=== PATIENT | female | born 1970 | race Caucasian/White ===

== ENCOUNTER 2017-06-25 20:54 | Inpatient (IN) | payer MEDICAID ==
--- NOTE | 2017-06-25 21:16 | ER Document Report ---
ED GI/ - General Chief Complaint: Urinary Problem Stated Complaint: URINARY SYMPTOMS Time Seen by Provider: 06/25/17 21:15 Mode of Arrival: Medic Information source: Patient Notes: 47 yo morbidly obese, coninue to smoke, depression,diabetic, SVT, COPD (oxygen dependent-4lpm and CPAP) , hx sepsis, renal failure, living in recliner since September-(can't breathe supine), immobility - using bedside commode, with recent high blood [id number] (40 this morning), here tonight because her parents told her to come with 3 day symptoms of body "jerking", head tilting to the left in spasms, increased weakness, roaring in ears-head, sleepy, no urge to urinate for 3 days-but did get on way here, PCP: Lucretia [employer] managing her care. Has been decreasing her methadone and oxycodone recently. She also states she has been falling asleep with lit cigarettes which are causing dunaway to her chest. So has crusted sores and history of abscesses. TRAVEL OUTSIDE OF THE [place] IN LAST 30 DAYS: No - Related Data Allergies/Adverse Reactions: ceftriaxone sodium [From Rocephin] Allergy (Unknown, Verified 06/26/17 02:16) Generalized Itching levofloxacin [From Levaquin] Allergy (Unknown, Verified 06/26/17 02:16) Generalized Itching adhesive tape [Adhesive Tape] Allergy (Verified 06/26/17 02:16) latex [Latex] Allergy (Verified 06/26/17 02:16) morphine [Morphine] Allergy (Verified 06/26/17 02:16) Eczematous dermatitis vancomycin [Vancomycin] Adverse Reaction (Severe, Verified 06/26/17 02:16) Renal failure bacitracin [From Neosporin] Adverse Reaction (Unknown, Verified 06/26/17 02:16) Generalized rash gramicidin D [From Neosporin] Adverse Reaction (Unknown, Verified 06/26/17 02:16 ) Generalized rash neomycin sulfate [From Neosporin] Adverse Reaction (Unknown, Verified 06/26/17 02:16) Generalized rash polymyxin B [From Neosporin] Adverse Reaction (Unknown, Verified 06/26/17 02:16) Generalized rash Home Medications: Current Home Medications Gabapentin [Neurontin 300 mg Capsule] 300 mg PO Q8 06/26/17 [History] Glimepiride [Amaryl 4 mg Tablet] 4 mg PO BID 06/26/17 [History] Insulin Glargine,Hum.rec.anlog [Nasra Bradley] 150 unit SQ DAILY 06/26/17 [ History] Lisinopril [Prinivil 2.5 mg Tablet] 2.5 mg PO DAILY 06/26/17 [History] Methadone HCl [Dolophine 10 mg Tablet] 20 mg PO Q12 06/26/17 [History] Metoprolol Tartrate [Lopressor 50 mg Tablet] 50 mg PO Q12 06/26/17 [History] Oxycodone HCl [Oxy-Ir 5 mg Tablet] 5 mg PO Q8 06/26/17 [History] Venlafaxine HCl [Effexor 75 mg Tablet] 225 mg PO DAILY 06/26/17 [History] Past Medical History - General Information source: Patient, Parent - Social History Smoking Status: Current Every Day Smoker Frequency of alcohol use: None Drug Abuse: None Lives with: Spouse/Significant other Family History: Reviewed & Not Pertinent - No one with DVT. No one with pulmonary emboli. - Medical History Notes: morbid obesity - Past Medical History Cardiac Medical History: Reports: Hx Hypercholesterolemia, Hx Hypertension Pulmonary Medical History: Reports: Hx COPD - On home oxygen at 4 L Denies: Hx Tuberculosis Endocrine Medical History: Reports: Hx Diabetes Mellitus Type 2 - On Lantus, Humalog, Amaryl Renal/ Medical History: Reports: Hx Hemodialysis - History of; no longer, Hx Renal Insufficiency - 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 Suspected vancomycin allergy Skin Medical History: Reports Hx Cellulitis Psychiatric Medical History: Reports: Hx Depression Past Surgical History: Reports: Hx Abdominal Surgery - Abdominal wall abscess, incision and drainage., Hx Orthopedic Surgery - right knee, right arm - Immunizations Immunizations up to date: Yes Hx Diphtheria, Pertussis, Tetanus Vaccination: Yes Hx Pneumococcal Vaccination: 10/11/13 Review of Systems - Review of Systems Constitutional: See HPI EENT: No symptoms reported Cardiovascular: No symptoms reported Respiratory: See HPI Gastrointestinal: No symptoms reported Genitourinary: No symptoms reported Female Genitourinary: No symptoms reported Musculoskeletal: No symptoms reported Skin: See HPI Hematologic/Lymphatic: No symptoms reported Neurological/Psychological: See HPI Physical Exam - Vital signs Vitals: Temp Pulse Ox 99.0 F 90 L 06/25/17 21:12 06/25/17 21:12 Interpretation: Tachycardic, Hypoxic, Tachypneic - General Notes: drowsy - HEENT Head: Normocephalic, Atraumatic Eyes: Normal Conjunctiva: Normal Pupils: PERRL Tympanic membrane: Normal Mucous membranes: Dry Pharynx: Erythema Neck: Supple - Respiratory Respiratory status: No respiratory distress Chest status: Nontender Breath sounds: Normal. No: Wheezing Chest palpation: Normal - Cardiovascular Rhythm: Regular Heart sounds: Normal auscultation Murmur: No - Abdominal Inspection: Morbidly Obese Distension: No distension Bowel sounds: Normal Tenderness: Nontender Organomegaly: No organomegaly - difficult to assess due to adipose - Back Back: Normal, Nontender - Extremities General upper extremity: Normal inspection, Nontender, Normal color, Normal ROM , Normal temperature General lower extremity: Normal inspection, Nontender, Edema, Normal color, Normal ROM, Normal temperature, Other - unable to walk due to weakness. No: Kelly's sign - Neurological Neuro grossly intact: Yes Cognition: Normal Orientation: AAOx4 [place] Coma Scale Eye Opening: Spontaneous [place] Coma Scale Verbal: Oriented [place] Coma Scale Motor: Obeys Commands [place] Coma Scale Total: 15 Speech: Normal Motor strength normal: LUE, RUE, LLE, RLE Sensory: Normal - Psychological Associated symptoms: Normal affect, Normal mood - Skin Skin Temperature: Warm Skin Moisture: Dry Skin Color: Normal Notes: round crusted chest lesions, also lower abdomen Course - Re-evaluation Re-evalutation: 06/26/17 00:[address] Mon, the patient will be admitted to [facility] for acute renal failure and exacerbation of COPD. Dr. santoro will call me back. - Vital Signs Vital signs: Temp Pulse Resp BP Pulse Ox 98.2 F 92 18 102/57 L 89 L 06/27/17 11:13 06/27/17 13:47 06/27/17 13:47 06/27/17 11:13 06/27/17 13:47 - Laboratory Result Diagrams: 06/27/17 03:58 06/27/17 03:58 Laboratory results interpreted by me: 06/25/17 06/25/17 06/25/17 22:20 22:20 22:20 RBC 5.63 H MCH 26.0 L MCHC 31.2 L RDW 20.6 H Carbonic Acid ABG pH ABG pCO2 ABG pO2 ABG HCO3 ABG Total CO2 ABG O2 Saturation Potassium 5.6 H BUN 41 H Creatinine 2.67 H Est GFR ( Amer) 23 L Est GFR (Non-Af Amer) 19 L Glucose 131 H Direct Bilirubin 0.9 H Alkaline Phosphatase 134 H NT-Pro-B Natriuret Pep 1690 H Albumin 3.1 L Urine Protein Urine Blood Ur Leukocyte Esterase 06/25/17 06/25/17 22:20 23:20 RBC MCH MCHC RDW Carbonic Acid 2.02 H ABG pH 7.26 L ABG pCO2 67.2 H ABG pO2 61.8 L ABG HCO3 29.5 H ABG Total CO2 31.5 H ABG O2 Saturation 87.4 L Potassium BUN Creatinine Est GFR ( Amer) Est GFR (Non-Af Amer) Glucose Direct Bilirubin Alkaline Phosphatase NT-Pro-B Natriuret Pep Albumin Urine Protein 100 H Urine Blood MODERATE H Ur Leukocyte Esterase TRACE H Discharge - Discharge Clinical Impression: Exacerbation of COPD, Respiratory failure, Acute renal failure, Morbid obesity , urinary tract infection Condition: Stable Disposition: ADMITTED INPATIENT Admitting Provider: Hospitalist Unit Admitted: [facility]
--- NOTE | 2017-06-25 22:36 | RADIOLOGY REPORT (SQ) ---
EXAM DESCRIPTION: CHEST SINGLE VIEW COMPLETED DATE/TIME: 06/25/2017 10:27 pm REASON FOR STUDY: shortness of breath COMPARISON: 11/12/2015. NUMBER OF VIEWS: One view. TECHNIQUE: Single frontal radiographic view of the chest acquired. LIMITATIONS: None. FINDINGS: LUNGS AND PLEURA: No opacities, masses or pneumothorax. No pleural effusion. MEDIASTINUM AND HILAR STRUCTURES: No masses or contour abnormality. HEART AND VASCULATURE: Cardiac enlargement. Vascular congestion. BONES: No acute findings. HARDWARE: None in the chest. OTHER: No other significant finding. IMPRESSION: CARDIAC ENLARGEMENT. VASCULAR CONGESTION. TECHNICAL DOCUMENTATION: JOB ID: [id number] [employer]- All Rights Reserved
[2017-06-25 22:44] LABS: ABSOLUTE EOSINOPHILS # (AUTO) 0.2 10^3/uL (0.0-0.6); ABSOLUTE LYMPHOCYTES (AUTO) 1.7 10^3/uL (0.5-4.7); ABSOLUTE MONOCYTES (AUTO) 0.8 10^3/uL (0.1-1.4); ABSOLUTE NEUT (AUTO) 7.2 10^3/uL (1.7-8.2); BASOPHILS % (AUTO) 0.4 % (0-2); EOSINOPHILS % (AUTO) 2.3 % (0-6); HEMATOCRIT 46.8 % (36.0-47.0); HEMOGLOBIN 14.6 g/dL (12.0-15.5); LYMPHOCYTES % (AUTO) 17.5 % (13-45); MEAN CORPUSCULAR HGB CONC 31.2 g/dL (32.0-36.0); MEAN CORPUSCULAR VOLUME 83 fl (80-97); MONOCYTES % (AUTO) 7.7 % (3-13); RED BLOOD COUNT 5.63 10^6/uL (3.72-5.28); RED CELL DISTRIBUTION WIDTH 20.6 % (11.5-14.0); SEGMENTED NEUTROPHILS % (AUTO) 72.1 % (42-78); WHITE BLOOD COUNT 9.9 10^3/uL (4.0-10.5)
[2017-06-25 23:10] LABS: ALANINE AMINOTRANSFERASE 15 U/L (9-52); ALBUMIN 3.1 g/dL (3.5-5.0); ALKALINE PHOSPHATASE 134 U/L (38-126); ANION GAP 11 (5-19); ASPARTATE AMINO TRANSFERASE 22 U/L (14-36); BILIRUBIN,DIRECT 0.9 mg/dL (0.0-0.4); BLOOD UREA NITROGEN 41 mg/dL (7-20); CALCIUM 8.5 mg/dL (8.4-10.2); CARBON DIOXIDE 28 mmol/L (22-30); CHLORIDE 100 mmol/L (98-107); CREATININE RESULT 2.67 mg/dL (0.52-1.25); GLUCOSE 131 mg/dL (75-110); MAGNESIUM 2.2 mg/dL (1.6-2.3); POTASSIUM 5.6 mmol/L (3.6-5.0); SODIUM 139.4 mmol/L (137-145); TOTAL PROTEIN 7.6 g/dL (6.3-8.2)
[2017-06-25 23:11] LABS: ALCOHOL < 10 mg/dL (NONE DETECTED)
[2017-06-25 23:36] LABS: ARTERIAL BLOOD BASE EXCESS 0.3 mmol/L; ARTERIAL BLOOD O2 SATURATION 87.4 % (94-98)
[2017-06-25 23:54] LABS: APPEARANCE,URINE CLOUDY; BILIRUBIN,URINE NEGATIVE (NEGATIVE); GLUCOSE, URINE NEGATIVE (NEGATIVE); KETONES,URINE NEGATIVE (NEGATIVE); LEUKOCYTE ESTERASE,URINE TRACE (NEGATIVE); NITRITE,URINE NEGATIVE (NEGATIVE); PROTEIN,URINE 100 mg/dL (NEGATIVE); URINE SPECIFIC GRAVITY 1.011; UROBILINOGEN,URINE NEGATIVE mg/dL (<2.0)
[2017-06-26 00:02] LABS: URINE BARBITURATES SCREEN NEGATIVE; URINE METHADONE SCREEN UNCONFIRMED POSITIVE; URINE OPIATES LOW NEGATIVE; URINE PHENCYCLIDINE SCREEN NEGATIVE
[2017-06-26] MEDS ORDERED: NA PHOS,M-B/NA PHOS,DI-BA (ADULT) 133 ML ENEMA PR ONE (00:29)
[2017-06-26] MEDS ORDERED: NALOXONE HCL INJ/PF 0.4 MG/1 ML SDV IV ONE (00:29)
[2017-06-26] MEDS ORDERED: LACTULOSE SYRUP 20 GM/30 ML UDCUP PO ONE (00:29)
[2017-06-26] MEDS ORDERED: SODIUM POLYSTYRENE SULFONATE 15 GM/60 ML PO ONE ×2 (00:29→09:01)
[2017-06-26] MEDS ORDERED: DEXTROSE 50%-WATER 25 GM/50 ML DISP.SYRIN IV PRN ×2 (00:31)
[2017-06-26] MEDS ORDERED: GLUCAGON,HUMAN RECOMB 1 MG INJ IM PRN (00:31)
[2017-06-26] MEDS ORDERED: DEXTROSE 40% GEL 15 GM TUBE PO PRN ×2 (00:31)
[2017-06-26] MEDS ORDERED: MAGNESIUM HYDROXIDE SUSP 30 ML UDCUP PO PRN (00:31)
[2017-06-26] MEDS ORDERED: ONDANSETRON HCL INJ/PF 4 MG/2 ML SDV IV PRN (00:31)
[2017-06-26] MEDS: IPRATROPIUM/ALBUTEROL 0.5-2.5 MG/3 ML AMPUL NEB SCH ×4 (01:44→19:57)
[2017-06-26 01:52] LABS: CREATINE KINASE MB 0.82 ng/mL (<4.55)
[2017-06-26 01:54] LABS: TROPONIN I < 0.012 ng/mL
[2017-06-26] MEDS ORDERED: NORMAL SALINE 1000 ML 1,000 ML IV ONE (02:31)
[2017-06-26] MEDS: HEPARIN SOD (PORCINE) 5,000 UNIT/ML 1 ML SYRINGE SUBCUT SCH ×3 (05:13→22:01)
[2017-06-26] MEDS: ACETAMINOPHEN 325 MG TABLET PO PRN (05:17)
[2017-06-26 06:31] LABS: ARTERIAL BLOOD BASE EXCESS 1.4 mmol/L; ARTERIAL BLOOD O2 SATURATION 80.9 % (94-98)
--- NOTE | 2017-06-26 06:47 | PDOC H&P ---
History of Present Illness Admission Date/PCP: 06/26/17 00:36 Patient complains of: Shortness of breath History of Present Illness: JANUARY THERESA is a 47 year old female with a past medical history of chronic pain, depression, anxiety, obstructive sleep apnea, COPD, and some dependent diabetes, diabetic neuropathy, restless leg syndrome, chronic constipation, tobacco dependence and super morbid obesity with a BMI of 84. Patient been in her usual state of health until approximately 48 hours ago her noted exceptional lethargy and shortness of breath consistent with previous episodes of hypercapnic respiratory failure. Patient's is at bedside and states the patient had refilled her methadone earlier in the week resulting in patients abrupt angry denial. In the emergency room she is found to be lethargic, hypoxemic and hypotensive, her labs reveal acute renal failure, hyperkalemia, hypoxia and hypercapnia. She started on BiPAP and referred to the hospitalist for admission. Past Medical History Cardiac Medical History: Reports: Hyperlipidema, Hypertension Pulmonary Medical History: Reports: Chronic Obstructive Pulmonary Disease (COPD ) - On home oxygen at 4 L, Sleep Apnea Denies: Tuberculosis Endocrine Medical History: Reports: Diabetes Mellitus Type 1, Diabetes Mellitus Type 2 - On Lantus, Humalog, Amaryl Psychiatric Medical History: Reports: Depression, Tobacco Dependency Past Surgical History Past Surgical History: Reports: Orthopedic Surgery - right knee, right arm Social History Information Source: Patient, Relative, Emergency Med Personnel, [facility] Records Smoking Status: Current Every Day Smoker Cigarettes Packs Per Day: 1 Number of Years Smokin Last Time Smoked: 06/25/17 Frequency of Alcohol Use: None Hx Recreational Drug Use: No Drugs: None Hx Prescription Drug Abuse: No - Advance Directive Resuscitation Status: Full Code Family History Family History: Reviewed & Not Pertinent - No one with DVT. No one with pulmonary emboli. Parental Family History Reviewed: Yes Children Family History Reviewed: Yes Sibling(s) Family History Reviewed.: Yes Medication/Allergy Home Medications: Gabapentin [Neurontin 300 mg Capsule] 300 mg PO TID 01/04/14 Glimepiride [Amaryl] 4 mg PO DAILY 11/12/15 Furosemide [Lasix 20 mg Tablet] 20 mg PO DAILY #30 tablet 11/18/15 Methadone HCl [Dolophine 10 mg Tablet] 20 mg PO Q12 tablet 11/18/15 Alprazolam [Xanax 0.5 mg Tablet] 0.5 mg PO DAILY 06/26/17 Insulin Glargine,Hum.rec.anlog [Nasra Bradley] 150 units SUBCUT TID 06/26/17 Lisinopril [Prinivil 2.5 mg Tablet] 2.5 mg PO DAILY 06/26/17 Metoprolol Tartrate [Lopressor 50 mg Tablet] 50 mg PO DAILY 06/26/17 Oxycodone HCl [Oxy-Ir 5 mg Tablet] 5 mg PO TID 06/26/17 Venlafaxine HCl ER [Effexor Xr 75 mg Cap.sr] 75 mg PO DAILY 06/26/17 Allergies/Adverse Reactions: ceftriaxone sodium [From Rocephin] Allergy (Unknown, Verified 06/26/17 02:16) Generalized Itching levofloxacin [From Levaquin] Allergy (Unknown, Verified 06/26/17 02:16) Generalized Itching adhesive tape [Adhesive Tape] Allergy (Verified 06/26/17 02:16) latex [Latex] Allergy (Verified 06/26/17 02:16) morphine [Morphine] Allergy (Verified 06/26/17 02:16) Eczematous dermatitis vancomycin [Vancomycin] Adverse Reaction (Severe, Verified 06/26/17 02:16) Renal failure bacitracin [From Neosporin] Adverse Reaction (Unknown, Verified 06/26/17 02:16) Generalized rash gramicidin D [From Neosporin] Adverse Reaction (Unknown, Verified 06/26/17 02:16 ) Generalized rash neomycin sulfate [From Neosporin] Adverse Reaction (Unknown, Verified 06/26/17 02:16) Generalized rash polymyxin B [From Neosporin] Adverse Reaction (Unknown, Verified 06/26/17 02:16) Generalized rash Review of Systems Constitutional: PRESENT: fatigue, weight gain. ABSENT: chills, fever(s), headache(s), weight loss Eyes: ABSENT: visual disturbances Ears: ABSENT: hearing changes Cardiovascular: ABSENT: chest pain, dyspnea on exertion, edema, orthropnea, palpitations Respiratory: PRESENT: dyspnea. ABSENT: cough, hemoptysis, sputum Gastrointestinal: PRESENT: bloating, constipation. ABSENT: coffee ground emesis , diarrhea, dysphagia Genitourinary: ABSENT: dysuria, hematuria Musculoskeletal: ABSENT: joint swelling Integumentary: ABSENT: rash, wounds Neurological: PRESENT: confusion, weakness. ABSENT: abnormal gait, abnormal speech, dizziness, focal weakness, syncope Psychiatric: PRESENT: anxiety Endocrine: ABSENT: cold intolerance, heat intolerance, polydipsia, polyuria Hematologic/Lymphatic: ABSENT: easy bleeding, easy bruising Physical Exam Vital Signs: Temp Pulse Resp BP Pulse Ox 97.9 F 99 30 H 103/54 L 84 L 06/26/17 03:46 06/26/17 03:46 06/26/17 04:12 06/26/17 03:46 06/26/17 03:46 Intake & Output 06/24/17 06/25/17 06/26/17 11:59 11:59 11:59 Intake Total 587 Output Total 1400 Balance -813 Weight 250.1 kg General appearance: PRESENT: disheveled, morbidly obese Head exam: PRESENT: atraumatic, normocephalic Eye exam: PRESENT: conjunctiva pink, EOMI, PERRLA. ABSENT: scleral icterus Ear exam: PRESENT: normal external ear exam Mouth exam: PRESENT: moist, tongue midline Neck exam: ABSENT: carotid bruit, JVD, lymphadenopathy, thyromegaly Respiratory exam: PRESENT: crackles, decreased breath sounds, prolonged expiratory phas, retraction, symmetrical, tachypnea. ABSENT: chest wall tenderness, rhonchi, stridor Cardiovascular exam: PRESENT: RRR. ABSENT: diastolic murmur, rubs, systolic murmur Pulses: PRESENT: normal dorsalis pedis pul Vascular exam: PRESENT: normal capillary refill GI/Abdominal exam: PRESENT: distended, hypoactive bowel sounds, soft, other - Widespread edema. ABSENT: tenderness Rectal exam: PRESENT: deferred Extremities exam: PRESENT: +1 edema Musculoskeletal exam: ABSENT: full ROM Neurological exam: PRESENT: altered, awake, oriented to person, oriented to place, CN II-XII grossly intact Psychiatric exam: PRESENT: anxious Skin exam: PRESENT: dry, intact, warm. ABSENT: cyanosis, rash Results Laboratory Results: 06/26/17 06/26/17 01:04 01:04 Creatine Kinase 31 CK-MB (CK-2) 0.82 Troponin I < 0.012 Impressions: Chest X-Ray 06/25/17 21:32 IMPRESSION: CARDIAC ENLARGEMENT. VASCULAR CONGESTION. Assessment & Plan - Diagnosis (1) Acute and chronic respiratory failure ([id number]) Is this a current diagnosis for this admission?: Yes Plan: Hypoxic and hypercapnic respiratory failure secondary to underlying obstructive sleep apnea, morbid obesity hypoventilation syndrome and opiate abuse. BiPAP support, opiate weaning with as needed Narcan, incentive spirometry. (2) Acute renal failure Is this a current diagnosis for this admission?: Yes Plan: Secondary to opiate misuse resulting in hypotension, IV fluid resuscitation, opiate weaning as needed Narcan, avoiding nephrotoxic meds and doses, follow-up chemistry (3) Hypotension Is this a current diagnosis for this admission?: Yes Plan: Secondary to opiate misuse, IV fluid challenge as needed Narcan (4) Diabetes Is this a current diagnosis for this admission?: Yes Plan: Hold metformin, 75% of long-acting insulin dose with sliding scale coverage (5) Chronic pain Is this a current diagnosis for this admission?: Yes Plan: Opiate weaning given reduction respiratory drive. - Time Time Spent: 50 to 70 Minutes - Inpatient Certification Medical Necessity: Need Close Monitoring Due to Risk of Patient Decompensation
[2017-06-26] MEDS ORDERED: INSULIN GLARGINE,HUM.REC.ANLOG 1,000 UNIT/10 ML UNIT SUBCUT SCH (08:00)
[2017-06-26] MEDS ORDERED: OXYCODONE HCL IR 5 MG TABLET PO PRN (08:09)
[2017-06-26] MEDS: GABAPENTIN 300 MG CAPSULE PO SCH ×3 (08:12→22:07)
[2017-06-26 09:09] LABS: CREATINE KINASE MB 3.32 ng/mL (<4.55)
[2017-06-26 09:13] LABS: TROPONIN I < 0.012 ng/mL
[2017-06-26] MEDS: METHADONE HCL 10 MG TABLET PO SCH ×2 (09:18→22:07)
[2017-06-26] MEDS: GLIMEPIRIDE 4 MG TABLET PO SCH (09:19)
[2017-06-26] MEDS: VENLAFAXINE HCL 75 MG CAP.SR.24H PO SCH (09:19)
[2017-06-26] MEDS: DOCUSATE SODIUM 100 MG CAPSULE PO SCH ×2 (09:19→18:25)
[2017-06-26] MEDS: FLUCONAZOLE 100 MG TABLET PO SCH (09:20)
[2017-06-26] MEDS ORDERED: (PENDING PHARMACY ID) (Glimepiride [Amaryl] 4 MG) PO SCH (10:00)
[2017-06-26] MEDS ORDERED: INSULIN GLARGINE HUM REC ANLOG 150 UNIT SUBCUT SCH (10:00)
[2017-06-26] MEDS ORDERED: METOPROLOL TARTRATE 50 MG TABLET PO SCH ×3 (10:00)
[2017-06-26] MEDS ORDERED: ALPRAZOLAM 0.5 MG TABLET PO SCH (10:00)
--- NOTE | 2017-06-26 11:48 | EKG REPORT ---
SEVERITY:- ABNORMAL ECG - SINUS RHYTHM PROBABLE LEFT ATRIAL ABNORMALITY PROBABLE RIGHT VENTRICULAR HYPERTROPHY BORDERLINE T ABNORMALITIES, INFERIOR LEADS : Confirmed by: Mariam Banegas 26-Jun-2017 11:47:36
[2017-06-26] MEDS ORDERED: METOPROLOL TARTRATE 25 MG TABLET PO ONE (12:30)
[2017-06-26 13:11] LABS: ANION GAP 11 (5-19); BLOOD UREA NITROGEN 38 mg/dL (7-20); CALCIUM 8.4 mg/dL (8.4-10.2); CARBON DIOXIDE 28 mmol/L (22-30); CHLORIDE 103 mmol/L (98-107); GLUCOSE 101 mg/dL (75-110); SODIUM 141.8 mmol/L (137-145)
--- NOTE | 2017-06-26 13:11 | PDOC PROGRESS REPORT ---
Subjective Progress Note for:: 06/26/17 Subjective:: Patient's patient seen on morning rounds. She has just come off BiPAP therapy to eat. She appears tachypneic at rest. She is also still lethargic. She is no longer tachycardic or hypotensive. Denies chest pain, palpitations or dyspnea. She denies productive cough. She denies fever or chills. She denies nausea, vomiting or abdominal pain. She complains of chronic back pain. She admits to being noncompliant with CPAP therapy at home. Her is at bedside. She also continues to smoke. She was counseled. She has no desire to quit smoking. Physical Exam Vital Signs: Temp Pulse Resp BP Pulse Ox 98.4 F 97 22 H 121/91 H 97 06/26/17 07:28 06/26/17 08:36 06/26/17 08:38 06/26/17 07:28 06/26/17 08:36 Intake & Output 06/25/17 06/26/17 06/27/17 06:59 06:59 06:59 Intake Total 587 Output Total 1400 Balance -813 Weight 250.1 kg General appearance: PRESENT: mild distress, morbidly obese, well-developed, well -nourished Head exam: PRESENT: atraumatic, normocephalic Eye exam: PRESENT: conjunctiva pink, EOMI, PERRLA. ABSENT: scleral icterus Ear exam: PRESENT: normal external ear exam Mouth exam: PRESENT: moist, tongue midline Neck exam: ABSENT: carotid bruit, JVD, lymphadenopathy, thyromegaly Respiratory exam: PRESENT: clear to auscultation ayah. ABSENT: rales, rhonchi, wheezes Cardiovascular exam: PRESENT: RRR. ABSENT: diastolic murmur, rubs, systolic murmur Pulses: PRESENT: normal dorsalis pedis pul Vascular exam: PRESENT: normal capillary refill GI/Abdominal exam: PRESENT: normal bowel sounds, soft. ABSENT: distended, guarding, mass, organolmegaly, rebound, tenderness Rectal exam: PRESENT: deferred Extremities exam: PRESENT: full ROM. ABSENT: calf tenderness, clubbing, pedal edema Musculoskeletal exam: PRESENT: ambulatory, full ROM, tenderness Neurological exam: PRESENT: alert, awake, oriented to person, oriented to place , oriented to time, oriented to situation, CN II-XII grossly intact. ABSENT: motor sensory deficit Psychiatric exam: PRESENT: appropriate affect, normal mood. ABSENT: homicidal ideation, suicidal ideation Skin exam: PRESENT: dry, intact, warm. ABSENT: cyanosis, rash Results Laboratory Results: 06/26/17 06:00 Carbonic Acid 1.97 H HCO3/H2CO3 Ratio 15:1 ABG pH 7.28 L ABG pCO2 65.6 H ABG pO2 51.4 L ABG HCO3 30.1 H ABG O2 Saturation 80.9 L ABG Base Excess 1.4 FiO2 4.5 LITERS 06/26/17 06/26/17 06/26/17 01:04 01:04 08:30 Creatine Kinase 31 70 CK-MB (CK-2) 0.82 Troponin I < 0.012 06/26/17 08:30 Creatine Kinase CK-MB (CK-2) 3.32 Troponin I < 0.012 Impressions: Chest X-Ray 06/25/17 21:32 IMPRESSION: CARDIAC ENLARGEMENT. VASCULAR CONGESTION. Assessment & Plan - Diagnosis (1) Acute and chronic respiratory failure with hypercapnia Is this a current diagnosis for this admission?: Yes Plan: Patient requiring BiPAP majority of the time. She was counseled that she needs to keep it on as much as possible except when eating. Ms. to be noncompliant with CPAP at home. She continues to smoke as well. We discussed that the effects of narcotics on her COPD as well. (2) SIRS (systemic inflammatory response syndrome) Is this a current diagnosis for this admission?: Yes (3) Acute renal failure Is this a current diagnosis for this admission?: Yes Plan: Likely secondary to prerenal dehydration. Will continue to hydrate, avoid nephrotoxic medications and dosages. Patient had a normal creatinine during last hospitalization (4) Hyperkalemia Is this a current diagnosis for this admission?: Yes Plan: Kayexalate and monitor (5) Hypotension Is this a current diagnosis for this admission?: Yes Plan: Likely secondary to dehydration and narcotics. Improved with hydration and Narcan (6) Obstructive chronic bronchitis with exacerbation Is this a current diagnosis for this admission?: Yes Plan: Patient admits to not wearing CPAP at home. She also continues to smoke. (7) Morbid obesity with BMI of 70 and over, adult Is this a current diagnosis for this admission?: Yes (8) CARY (obstructive sleep apnea) Is this a current diagnosis for this admission?: Yes Plan: Counseled on the need for CPAP. is aware (9) Chronic pain Is this a current diagnosis for this admission?: Yes Plan: Will continue methadone. She admits at times to not taking opioid breakthrough medication as ordered - Time Time Spent with patient: 25-34 minutes Critical Time spent with patient: 15-24 minutes Medications reviewed and adjusted accordingly: Yes Anticipated discharge: Home with Homehealth
[2017-06-26 15:21] LABS: CREATINE KINASE MB 2.78 ng/mL (<4.55)
[2017-06-26 15:24] LABS: TROPONIN I < 0.012 ng/mL
[2017-06-26] MEDS: METOPROLOL TARTRATE 25 MG TABLET PO SCH (22:07)
[2017-06-27 00:25] LABS: ARTERIAL BLOOD BASE EXCESS 0.7 mmol/L; ARTERIAL BLOOD O2 SATURATION 93.3 % (94-98)
[2017-06-27] MEDS ORDERED: NALOXONE HCL INJ/PF 0.4 MG/1 ML SDV IV ONE (01:24)
[2017-06-27] MEDS ORDERED: NALOXONE HCL INJ/PF 0.4 MG/1 ML SDV ONE (01:29)
[2017-06-27] MEDS: IPRATROPIUM/ALBUTEROL 0.5-2.5 MG/3 ML AMPUL NEB SCH ×4 (02:06→19:46)
[2017-06-27 04:06] LABS: VENOUS BLOOD BASE EXCESS 1.4 mmol/L; VENOUS BLOOD HCO3 29.8 mmol/L (20-32); VENOUS BLOOD PCO2 64.2 mmHg (35-63); VENOUS BLOOD PH 7.28 (7.30-7.42)
[2017-06-27 04:10] LABS: ABSOLUTE BASOPHILS # (AUTO) 0.1 10^3/uL (0.0-0.2); ABSOLUTE EOSINOPHILS # (AUTO) 0.1 10^3/uL (0.0-0.6); ABSOLUTE LYMPHOCYTES (AUTO) 1.2 10^3/uL (0.5-4.7); ABSOLUTE MONOCYTES (AUTO) 0.6 10^3/uL (0.1-1.4); ABSOLUTE NEUT (AUTO) 6.2 10^3/uL (1.7-8.2); BASOPHILS % (AUTO) 0.9 % (0-2); EOSINOPHILS % (AUTO) 1.4 % (0-6); HEMATOCRIT 41.8 % (36.0-47.0); HEMOGLOBIN 13.4 g/dL (12.0-15.5); HGB HCT DIFFERENCE -1.6; LYMPHOCYTES % (AUTO) 14.8 % (13-45); MEAN CORPUSCULAR HEMOGLOBIN 26.1 pg (27.0-33.4); MEAN CORPUSCULAR HGB CONC 31.9 g/dL (32.0-36.0); MEAN CORPUSCULAR VOLUME 82 fl (80-97); MONOCYTES % (AUTO) 7.3 % (3-13); RED BLOOD COUNT 5.13 10^6/uL (3.72-5.28); RED CELL DISTRIBUTION WIDTH 20.6 % (11.5-14.0); SEGMENTED NEUTROPHILS % (AUTO) 75.6 % (42-78); WHITE BLOOD COUNT 8.2 10^3/uL (4.0-10.5)
[2017-06-27 04:21] LABS: ALANINE AMINOTRANSFERASE 23 U/L (9-52); ALKALINE PHOSPHATASE 125 U/L (38-126); ANION GAP 8 (5-19); ASPARTATE AMINO TRANSFERASE 17 U/L (14-36); BILIRUBIN,DIRECT 0.8 mg/dL (0.0-0.4); BILIRUBIN,TOTAL 1.2 mg/dL (0.2-1.3); BLOOD UREA NITROGEN 37 mg/dL (7-20); CALCIUM 8.6 mg/dL (8.4-10.2); CARBON DIOXIDE 31 mmol/L (22-30); CHLORIDE 104 mmol/L (98-107); CREATININE RESULT 1.85 mg/dL (0.52-1.25); GLUCOSE 123 mg/dL (75-110); SODIUM 142.6 mmol/L (137-145); TOTAL PROTEIN 7.1 g/dL (6.3-8.2)
[2017-06-27] MEDS: HEPARIN SOD (PORCINE) 5,000 UNIT/ML 1 ML SYRINGE SUBCUT SCH ×2 (06:51→14:40)
--- NOTE | 2017-06-27 08:45 | PDOC PROGRESS REPORT ---
Subjective Progress Note for:: 06/27/17 Subjective:: Patient's patient seen on morning rounds. She is awake and alert. She remains on BIPAP therapy She is not tachypneic or lethargic at the present time. She is no longer tachycardic or hypotensive. Denies chest pain, palpitations or dyspnea. She has an occasional productive cough. She denies fever or chills. She denies nausea, vomiting or abdominal pain. She complains of chronic back pain and pain in her buttocks.. She admits to being noncompliant with CPAP therapy at home. She also continues to smoke. She was counseled. She has no desire to quit smoking. Physical Exam Vital Signs: Temp Pulse Resp BP Pulse Ox 97.7 F 94 22 H 130/78 H 95 06/27/17 07:46 06/27/17 08:00 06/27/17 08:00 06/27/17 07:46 06/27/17 08:00 Intake & Output 06/26/17 06/27/17 06/28/17 06:59 06:59 06:59 Intake Total 587 1766 Output Total 1400 2750 Balance -813 -984 Weight 250.1 kg 233.5 kg General appearance: PRESENT: no acute distress, morbidly obese, well-developed, well-nourished Head exam: PRESENT: atraumatic, normocephalic Eye exam: PRESENT: conjunctiva pink, EOMI, PERRLA. ABSENT: scleral icterus Ear exam: PRESENT: normal external ear exam Mouth exam: PRESENT: moist, tongue midline Neck exam: ABSENT: carotid bruit, JVD, lymphadenopathy, thyromegaly Respiratory exam: PRESENT: clear to auscultation ayah, decreased breath sounds, symmetrical, unlabored. ABSENT: rales, rhonchi, wheezes Cardiovascular exam: PRESENT: RRR. ABSENT: diastolic murmur, rubs, systolic murmur Pulses: PRESENT: normal dorsalis pedis pul Vascular exam: PRESENT: normal capillary refill GI/Abdominal exam: PRESENT: normal bowel sounds, soft. ABSENT: distended, guarding, mass, organolmegaly, rebound, tenderness Rectal exam: PRESENT: deferred Extremities exam: PRESENT: full ROM, +1 edema - pedal. ABSENT: calf tenderness , clubbing, pedal edema Musculoskeletal exam: PRESENT: ambulatory, full ROM Neurological exam: PRESENT: alert, awake, oriented to person, oriented to place , oriented to time, oriented to situation, CN II-XII grossly intact. ABSENT: motor sensory deficit Psychiatric exam: PRESENT: appropriate affect Skin exam: PRESENT: dry, warm, other - multiple superficial scabs on chest. Patient states from cigarette travis dunaway Results Laboratory Results: 06/27/17 03:58 06/27/17 03:58 06/26/17 06/27/17 06/27/17 12:21 00:10 03:58 WBC 8.2 RBC 5.13 Hgb 13.4 Hct 41.8 MCV 82 MCH 26.1 L MCHC 31.9 L RDW 20.6 H Plt Count 219 Seg Neutrophils % 75.6 Lymphocytes % 14.8 Monocytes % 7.3 Eosinophils % 1.4 Basophils % 0.9 Absolute Neutrophils 6.2 Absolute Lymphocytes 1.2 Absolute Monocytes 0.6 Absolute Eosinophils 0.1 Absolute Basophils 0.1 Carbonic Acid 2.07 H HCO3/H2CO3 Ratio 14:1 ABG pH 7.25 L ABG pCO2 68.9 H ABG pO2 78.9 L ABG HCO3 29.7 H ABG O2 Saturation 93.3 L ABG Base Excess 0.7 VBG pH VBG pCO2 VBG HCO3 VBG Base Excess FiO2 45% Sodium 141.8 Potassium 5.0 Chloride 103 Carbon Dioxide 28 Anion Gap 11 BUN 38 H Creatinine 2.20 H Est GFR ( Amer) 29 L Est GFR (Non-Af Amer) 24 L Glucose 101 Calcium 8.4 Total Bilirubin AST ALT Alkaline Phosphatase Total Protein Albumin 06/27/17 06/27/17 03:58 03:58 WBC RBC Hgb Hct MCV MCH MCHC RDW Plt Count Seg Neutrophils % Lymphocytes % Monocytes % Eosinophils % Basophils % Absolute Neutrophils Absolute Lymphocytes Absolute Monocytes Absolute Eosinophils Absolute Basophils Carbonic Acid HCO3/H2CO3 Ratio ABG pH ABG pCO2 ABG pO2 ABG HCO3 ABG O2 Saturation ABG Base Excess VBG pH 7.28 L VBG pCO2 64.2 H VBG HCO3 29.8 VBG Base Excess 1.4 FiO2 Sodium 142.6 Potassium 5.0 Chloride 104 Carbon Dioxide 31 H Anion Gap 8 BUN 37 H Creatinine 1.85 H Est GFR ( Amer) 36 L Est GFR (Non-Af Amer) 29 L Glucose 123 H Calcium 8.6 Total Bilirubin 1.2 AST 17 ALT 23 Alkaline Phosphatase 125 Total Protein 7.1 Albumin 3.0 L 06/26/17 06/26/17 06/26/17 01:04 01:04 08:30 Creatine Kinase 31 70 CK-MB (CK-2) 0.82 Troponin I < 0.012 06/26/17 06/26/17 06/26/17 08:30 14:25 14:25 Creatine Kinase 58 CK-MB (CK-2) 3.32 2.78 Troponin I < 0.012 < 0.012 Impressions: Chest X-Ray 06/25/17 21:32 IMPRESSION: CARDIAC ENLARGEMENT. VASCULAR CONGESTION. Assessment & Plan - Diagnosis (1) Acute and chronic respiratory failure with hypercapnia Is this a current diagnosis for this admission?: Yes Plan: Patient requiring BiPAP majority of the time. She was counseled that she needs to keep it on as much as possible except when eating. Admits to being noncompliant with CPAP at home. She continues to smoke as well. We discussed that the effects of narcotics on her COPD as well. Taper methadone (2) SIRS (systemic inflammatory response syndrome) Is this a current diagnosis for this admission?: Yes Plan: Tachycardia and hypotension have resolved. No signs of infection, most likely secondary to narcotic use and dehydration (3) Acute renal failure Is this a current diagnosis for this admission?: Yes Plan: Likely secondary to prerenal dehydration. Improved with IV hydration. Avoid nephrotoxic medications and dosages. Patient had a normal creatinine during last hospitalization (4) Hyperkalemia Is this a current diagnosis for this admission?: Yes Plan: Kayexalate and monitor (5) Hypotension Is this a current diagnosis for this admission?: Yes Plan: Likely secondary to dehydration and narcotics. Improved with hydration and Narcan (6) Obstructive chronic bronchitis with exacerbation Is this a current diagnosis for this admission?: Yes Plan: Patient admits to not wearing CPAP at home. She also continues to smoke. (7) Morbid obesity with BMI of 70 and over, adult Is this a current diagnosis for this admission?: Yes (8) CARY (obstructive sleep apnea) Is this a current diagnosis for this admission?: Yes Plan: Counseled on the need for CPAP. is aware (9) Chronic pain Is this a current diagnosis for this admission?: Yes - Time Time Spent with patient: 25-34 minutes Critical Time spent with patient: 15-24 minutes Smoking Cessation Education: 3 to 10 minutes Medications reviewed and adjusted accordingly: Yes
[2017-06-27] MEDS: FLUCONAZOLE 100 MG TABLET PO SCH (09:13)
[2017-06-27] MEDS: VENLAFAXINE HCL 75 MG CAP.SR.24H PO SCH (09:13)
[2017-06-27] MEDS: GABAPENTIN 300 MG CAPSULE PO SCH ×2 (09:14→12:13)
[2017-06-27] MEDS: METOPROLOL TARTRATE 25 MG TABLET PO SCH (09:14)
[2017-06-27] MEDS: INSULIN GLARGINE,HUM.REC.ANLOG 1,000 UNIT/10 ML UNIT SUBCUT SCH (09:15)
[2017-06-27] MEDS: GLIMEPIRIDE 4 MG TABLET PO SCH (09:15)
[2017-06-27] MEDS: DOCUSATE SODIUM 100 MG CAPSULE PO SCH ×2 (09:17→17:16)
[2017-06-27] MEDS: NICOTINE 21 MG/24 HR PATCH.TD24 TD SCH (09:17)
[2017-06-27] MEDS: METHADONE HCL 10 MG TABLET PO SCH (09:20)
[2017-06-27] MEDS ORDERED: METHADONE HCL 10 MG TABLET PO ONE (09:30)
[2017-06-27] MEDS: INSULIN LISPRO 100 UNIT/ML 3 ML VIAL SUBCUT PRN ×2 (12:18→17:16)
[2017-06-27] MEDS ORDERED: DILTIAZEM HCL INJ 25 MG/5 ML VIAL ONE (21:03)
[2017-06-27] MEDS ORDERED: DILTIAZEM HCL INJ 25 MG/5 ML VIAL IV ONE (21:15)
[2017-06-27 21:30] LABS: ARTERIAL BLOOD BASE EXCESS 2.6 mmol/L; ARTERIAL BLOOD O2 SATURATION 92.1 % (94-98)
[2017-06-27 22:04] LABS: ANION GAP 8 (5-19); BLOOD UREA NITROGEN 29 mg/dL (7-20); CALCIUM 8.9 mg/dL (8.4-10.2); CARBON DIOXIDE 31 mmol/L (22-30); CHLORIDE 100 mmol/L (98-107); CREATININE RESULT 1.44 mg/dL (0.52-1.25); GLUCOSE 213 mg/dL (75-110); POTASSIUM 4.9 mmol/L (3.6-5.0); SODIUM 139.4 mmol/L (137-145)
[2017-06-27 22:16] LABS: CREATINE KINASE MB 1.37 ng/mL (<4.55); TROPONIN I < 0.012 ng/mL
[2017-06-27] MEDS ORDERED: METOPROLOL TARTRATE PF/INJ 5 MG/5 ML SDV IV ONE (22:42)
[2017-06-27] MEDS ORDERED: LIDOCAINE 0.5% INJ-PF (5 MG/ML) 50 ML SDV ONE (23:27)
--- NOTE | 2017-06-27 23:30 | EKG REPORT ---
SEVERITY:- ABNORMAL ECG - SINUS TACHYCARDIA VS ACCELERATED SEGUN RHYTHM PROBABLE RIGHT VENTRICULAR HYPERTROPHY NONSPECIFIC T ABNORMALITIES, INFERIOR LEADS : Confirmed by: Mariam Banegas 27-Jun-2017 23:30:10
[2017-06-28] MEDS: GABAPENTIN 300 MG CAPSULE PO SCH ×4 (00:31→22:58)
[2017-06-28] MEDS: METOPROLOL TARTRATE 25 MG TABLET PO SCH ×3 (00:31→22:59)
[2017-06-28] MEDS: HEPARIN SOD (PORCINE) 5,000 UNIT/ML 1 ML SYRINGE SUBCUT SCH ×4 (00:32→22:59)
--- NOTE | 2017-06-28 00:56 | RADIOLOGY REPORT (SQ) ---
EXAM DESCRIPTION: CHEST SINGLE VIEW COMPLETED DATE/TIME: 06/28/2017 12:34 am REASON FOR STUDY: central line placement COMPARISON: 06/25/2017. EXAM PARAMETERS: NUMBER OF VIEWS: One view. TECHNIQUE: Single frontal radiographic view of the chest acquired. RADIATION DOSE: NA LIMITATIONS: None. FINDINGS: LUNGS AND PLEURA: Moderate mixed interstitial and airspace opacities with lower lobe predo minance. MEDIASTINUM AND HILAR STRUCTURES: No masses. Contour normal. HEART AND VASCULAR STRUCTURES: Moderate enlargement of the cardiac silhouette. BONES: No acute findings. HARDWARE: Right central line tip at the level of the mid right paracentral neck. OTHER: No other significant finding. IMPRESSION: Moderate CHF pattern ; differential diagnosis includes pulmonary edema and pneumonia. C entral line tip at level of right paracentral neck ; clinician aware as confirmed with technologist. TECHNICAL DOCUMENTATION: JOB ID: [id number]
--- NOTE | 2017-06-28 02:33 | OPERATIVE REPORT E ---
Operative Report NAME: RADHA CARDENAS : 1970 AGE: 47Y DATE OF SURGERY: 06/27/2017 ROOM: 603 PREOPERATIVE DIAGNOSES: 1. Poor veins for IV access. 2. Morbid obesity. POSTOPERATIVE DIAGNOSES: 1. Poor veins for IV access. 2. Morbid obesity. PROCEDURE PERFORMED: Placement of right internal jugular vein catheter under ultrasound guidance. SURGEON: ROB KAY M.D. ANESTHESIA: Local. INDICATION: This is a 47-year-old female who is morbidly obese and noted to have respiratory failure. She needed an IV line. DESCRIPTION OF PROCEDURE: Patient was placed in slight Trendelenburg position, and the right neck prepped and draped in the usual sterile fashion. Patient appears to have a previous internal jugular vein catheter on this side and on the other side also according to her . Also, there appears to be a scar on the right side. With use of the ultrasound, the right internal jugular vein was then identified and subsequently punctured, and Guidewire passed through the needle towards the area of the superior vena cava. The Guidewire was able to be passed through up to about 30 cm. Unfortunately with the dilator, it can only passed through to about 2/3 because of likely scarring, unable to definitely dilate the whole area. There also appears to be a very sharp angle. Following this, the dilator was removed, and a triple lumen catheter inserted through the Guidewire. It could only be inserted up to about 10-12 cm. The Guidewire was then pulled out, and catheter anchored to the skin with 3-0 silk. The distal port was then irrigated and aspirated blood easily, and also easily injected saline; however, the mid and the proximal ports appear to be not inside the veins since I am unable to aspirate any blood, and unable to inject saline. Because of this, the 2 ports were then occluded, and informed the nurses not to use them. The distal port is the 1 that can only be used at this point. We will get a chest x-ray for positioning. Next, Biopatch was placed at the insertion site and a transparent dressing placed over the catheter. Patient had at least 15 cc of 1% Xylocaine used. Patient tolerated the procedure well. A chest x-ray will be obtained for placement. DICTATING PHYSICIAN: ROB KAY M.D. [id number] PHY#: [id number] ID: [id number] JOB#: [id number] ACCT: [id number] cc:ROB KAY M.D. >
[2017-06-28] MEDS: IPRATROPIUM/ALBUTEROL 0.5-2.5 MG/3 ML AMPUL NEB SCH ×4 (02:55→21:43)
[2017-06-28 07:23] LABS: ANION GAP 9 (5-19); BLOOD UREA NITROGEN 27 mg/dL (7-20); CALCIUM 8.8 mg/dL (8.4-10.2); CARBON DIOXIDE 30 mmol/L (22-30); CHLORIDE 102 mmol/L (98-107); CREATINE KINASE 41 U/L (30-135); CREATININE RESULT 1.09 mg/dL (0.52-1.25); GLUCOSE 195 mg/dL (75-110); MAGNESIUM 2.1 mg/dL (1.6-2.3); SODIUM 141.2 mmol/L (137-145)
[2017-06-28 08:18] LABS: CREATINE KINASE MB 0.95 ng/mL (<4.55)
[2017-06-28 08:23] LABS: TROPONIN I < 0.012 ng/mL
[2017-06-28] MEDS: ACETAMINOPHEN 325 MG TABLET PO PRN ×3 (08:32→23:17)
[2017-06-28] MEDS: INSULIN GLARGINE,HUM.REC.ANLOG 1,000 UNIT/10 ML UNIT SUBCUT SCH (08:33)
--- NOTE | 2017-06-28 08:43 | PDOC PROGRESS REPORT ---
Subjective Progress Note for:: 06/28/17 Subjective:: Patient's patient seen on morning rounds. She is awake and alert. She remains on BIPAP therapy She is not tachypneic or lethargic at the present time.She was transferred to ICU overnight due to tachycardia which resolved with IV lopressor. She is no longer tachycardic or hypotensive. Denies chest pain, palpitations or dyspnea. She has an occasional productive cough. She denies fever or chills. She denies nausea, vomiting or abdominal pain. She complains of chronic back pain and pain in her buttocks.. She admits to being noncompliant with CPAP therapy at home. She also continues to smoke. She was counseled. She has no desire to quit smoking. Physical Exam Vital Signs: Temp Pulse Resp BP Pulse Ox 97.9 F 87 17 132/76 H 98 06/28/17 08:00 06/28/17 08:00 06/28/17 08:00 06/28/17 08:00 06/28/17 08:00 Intake & Output 06/27/17 06/28/17 06/29/17 06:59 06:59 06:59 Intake Total 1766 2061 Output Total 2750 2940 Balance -984 -879 Weight 233.5 kg 245.5 kg General appearance: PRESENT: no acute distress, morbidly obese, well-developed, well-nourished Head exam: PRESENT: atraumatic, normocephalic Eye exam: PRESENT: conjunctiva pink, EOMI, PERRLA. ABSENT: scleral icterus Ear exam: PRESENT: normal external ear exam Neck exam: ABSENT: carotid bruit, JVD, lymphadenopathy, thyromegaly Respiratory exam: PRESENT: decreased breath sounds, symmetrical, unlabored Cardiovascular exam: PRESENT: RRR. ABSENT: diastolic murmur, rubs, systolic murmur Pulses: PRESENT: normal carotid pulses, normal radial pulses Vascular exam: PRESENT: normal capillary refill GI/Abdominal exam: PRESENT: normal bowel sounds, soft. ABSENT: distended, guarding, mass, organolmegaly, rebound, tenderness Rectal exam: PRESENT: deferred Extremities exam: PRESENT: full ROM, pedal edema - pedal to pretibial bilaterally, +1 edema. ABSENT: calf tenderness, clubbing Musculoskeletal exam: PRESENT: full ROM Neurological exam: PRESENT: alert, awake, oriented to person, oriented to place , oriented to time, oriented to situation, CN II-XII grossly intact. ABSENT: motor sensory deficit Psychiatric exam: PRESENT: appropriate affect, normal mood. ABSENT: homicidal ideation, suicidal ideation Skin exam: PRESENT: dry, warm, other - multiple Results Laboratory Results: 06/27/17 03:58 06/28/17 06:55 06/27/17 06/27/17 06/28/17 21:15 21:35 06:55 Carbonic Acid 1.95 H HCO3/H2CO3 Ratio 15:1 ABG pH 7.30 L ABG pCO2 64.7 H ABG pO2 71.0 L ABG HCO3 31.0 H ABG O2 Saturation 92.1 L ABG Base Excess 2.6 FiO2 40% Sodium 139.4 141.2 Potassium 4.9 5.0 Chloride 100 102 Carbon Dioxide 31 H 30 Anion Gap 8 9 BUN 29 H 27 H Creatinine 1.44 H 1.09 Est GFR ( Amer) 47 L > 60 Est GFR (Non-Af Amer) 39 L 54 L Glucose 213 H 195 H Calcium 8.9 8.8 Magnesium 2.0 2.1 06/26/17 06/26/17 06/26/17 01:04 01:04 08:30 Creatine Kinase 31 70 CK-MB (CK-2) 0.82 Troponin I < 0.012 06/26/17 06/26/17 06/26/17 08:30 14:25 14:25 Creatine Kinase 58 CK-MB (CK-2) 3.32 2.78 Troponin I < 0.012 < 0.012 06/27/17 06/27/17 06/28/17 21:35 21:35 06:55 Creatine Kinase 69 41 CK-MB (CK-2) 1.37 Troponin I < 0.012 06/28/17 07:39 Creatine Kinase CK-MB (CK-2) 0.95 Troponin I < 0.012 Impressions: Chest X-Ray 06/27/17 00:00 IMPRESSION: Moderate CHF pattern ; differential diagnosis includes pulmonary edema and pneumonia. Central line tip at level of right paracentral neck ; clinician aware as confirmed with technologist. Assessment & Plan - Diagnosis (1) Acute and chronic respiratory failure with hypercapnia Is this a current diagnosis for this admission?: Yes Plan: Patient requiring BiPAP majority of the time. She was counseled that she needs to keep it on as much as possible except when eating. Admits to being noncompliant with CPAP at home. She continues to smoke as well. We discussed that the effects of narcotics on her COPD as well. Taper methadone (2) SIRS (systemic inflammatory response syndrome) Is this a current diagnosis for this admission?: Yes Plan: Tachycardia and hypotension have resolved. No signs of infection, most likely secondary to narcotic use and dehydration (3) Acute renal failure Is this a current diagnosis for this admission?: Yes Plan: Improving to baseline (4) Hyperkalemia Is this a current diagnosis for this admission?: Yes Plan: Kayexalate and monitor (5) Hypotension Is this a current diagnosis for this admission?: Yes Plan: Likely secondary to dehydration and narcotics. Improved with hydration and Narcan. No longer hypotensive (6) Obstructive chronic bronchitis with exacerbation Is this a current diagnosis for this admission?: Yes Plan: Patient admits to not wearing CPAP at home. She also continues to smoke. (7) Morbid obesity with BMI of 70 and over, adult Is this a current diagnosis for this admission?: Yes (8) CARY (obstructive sleep apnea) Is this a current diagnosis for this admission?: Yes Plan: Counseled on the need for CPAP. is aware (9) Chronic pain Is this a current diagnosis for this admission?: Yes Plan: Holding narcotics due to respiratory status - Time Time Spent with patient: 25-34 minutes Critical Time spent with patient: 15-24 minutes Medications reviewed and adjusted accordingly: Yes
--- NOTE | 2017-06-28 12:17 | PROGRESS NOTE E ---
Progress Note NAME: THERESA JANUARY : 1970 AGE: 47Y DATE: 06/28/2017 ROOM: 603 SUBJECTIVE: I reviewed the x-ray done on the above patient for a central line placement, and the catheter appears to be going back up [id number] towards the internal jugular vein, and possibly going to a branch of the external jugular vein. Since she is a difficult catheter placement, would leave the catheter in and just use the distal port which appears to have an easy aspiration of blood and easy injection of saline. The other 2 ports should not be used. Again, the nurses were also informed of this. DICTATING PHYSICIAN: ROB KAY M.D. [id number] PHY#: [id number] ID: [id number] JOB#: [id number] ACCT: [id number] cc: >
[2017-06-28] MEDS: FLUCONAZOLE 100 MG TABLET PO SCH (12:33)
[2017-06-28] MEDS: NYSTATIN TOPICAL POWDER 15 GM TP SCH ×2 (12:35→18:43)
[2017-06-28] MEDS: DOCUSATE SODIUM 100 MG CAPSULE PO SCH ×2 (12:35→19:45)
[2017-06-28] MEDS: VENLAFAXINE HCL 75 MG CAP.SR.24H PO SCH (12:35)
[2017-06-28] MEDS: NICOTINE 21 MG/24 HR PATCH.TD24 TD SCH (12:35)
[2017-06-28] MEDS: GLIMEPIRIDE 4 MG TABLET PO SCH (14:42)
[2017-06-28] MEDS: PIPERACILLIN SODIUM/TAZOBACTAM 3.375 GM in DEXTROSE 5%-WATER 100 ML IV SCH ×2 (14:44→22:56)
[2017-06-28 17:28] LABS: CREATINE KINASE MB 0.85 ng/mL (<4.55)
[2017-06-28 17:31] LABS: TROPONIN I < 0.012 ng/mL
--- NOTE | 2017-06-28 19:16 | PDOC CONSULTATION ---
Consultation Consult Date: 06/28/17 Attending physician:: CHARO ENGLISH Consult reason:: Panniculitis, possible abscess History of Present Illness Admission Date/PCP: 06/26/17 00:31 Patient complains of: Mrs Villegas is a 47 year old female who presented to [facility] with acute COPD exacerbation and ARF. Warrenting admission with BIPAP she was admitted to ICU. She was subsequently transferred to the floor with improvement of symptoms. She has a longstanding history of COPD requiring regular BiPAP use at home. She states the only time she can go without BiPAP as when she is eating food. Currently she denies any fever chest pain headache dizziness loss of consciousness nausea vomiting or diarrhea. She does have complaints of abdominal wall pain in the left lower quadrant prior history of I&D for abdominal wall abscesses secondary to recurrent panniculitis. Currently she does have what appears to be panniculitis and intertrigo which likely is recurrent given the patient's history. She is morbidly obese and has not pursued options for weight loss at this time. Currently a smoker regardless of her advanced COPD history. Past Medical History Cardiac Medical History: Reports: Hyperlipidema, Hypertension Pulmonary Medical History: Reports: Chronic Obstructive Pulmonary Disease (COPD ) - On home oxygen at 4 L, Sleep Apnea Denies: Tuberculosis Endocrine Medical History: Reports: Diabetes Mellitus Type 1, Diabetes Mellitus Type 2 - On Lantus, Humalog, Amaryl Psychiatric Medical History: Reports: Depression, Tobacco Dependency Past Surgical History Past Surgical History: Reports: Orthopedic Surgery - right knee, right arm, Other - CVC I&D of abdominal wall abscess Social History Lives with: Spouse/Significant other Smoking Status: Current Every Day Smoker Cigarettes Packs Per Day: 1 Number of Years Smokin Last Time Smoked: 06/25/17 Frequency of Alcohol Use: None Hx Recreational Drug Use: No Drugs: None Hx Prescription Drug Abuse: No - Advance Directive Resuscitation Status: Full Code Family History Family History: Reviewed & Not Pertinent - No one with DVT. No one with pulmonary emboli. Parental Family History Reviewed: Yes Children Family History Reviewed: Yes Sibling(s) Family History Reviewed.: Yes Medication/Allergy Home Medications: Gabapentin [Neurontin 300 mg Capsule] 300 mg PO Q8 06/26/17 Glimepiride [Amaryl 4 mg Tablet] 4 mg PO BID 06/26/17 Insulin Glargine,Hum.rec.anlog [Nasra Bradley] 150 unit SQ DAILY 06/26/17 Lisinopril [Prinivil 2.5 mg Tablet] 2.5 mg PO DAILY 06/26/17 Methadone HCl [Dolophine 10 mg Tablet] 20 mg PO Q12 06/26/17 Metoprolol Tartrate [Lopressor 50 mg Tablet] 50 mg PO Q12 06/26/17 Oxycodone HCl [Oxy-Ir 5 mg Tablet] 5 mg PO Q8 06/26/17 Venlafaxine HCl [Effexor 75 mg Tablet] 225 mg PO DAILY 06/26/17 Allergies/Adverse Reactions: ceftriaxone sodium [From Rocephin] Allergy (Unknown, Verified 06/26/17 02:16) Generalized Itching levofloxacin [From Levaquin] Allergy (Unknown, Verified 06/26/17 02:16) Generalized Itching adhesive tape [Adhesive Tape] Allergy (Verified 06/26/17 02:16) latex [Latex] Allergy (Verified 06/26/17 02:16) morphine [Morphine] Allergy (Verified 06/26/17 02:16) Eczematous dermatitis vancomycin [Vancomycin] Adverse Reaction (Severe, Verified 06/26/17 02:16) Renal failure bacitracin [From Neosporin] Adverse Reaction (Unknown, Verified 06/26/17 02:16) Generalized rash gramicidin D [From Neosporin] Adverse Reaction (Unknown, Verified 06/26/17 02:16 ) Generalized rash neomycin sulfate [From Neosporin] Adverse Reaction (Unknown, Verified 06/26/17 02:16) Generalized rash polymyxin B [From Neosporin] Adverse Reaction (Unknown, Verified 06/26/17 02:16) Generalized rash Review of Systems Constitutional: PRESENT: night sweats, weakness. ABSENT: fever(s), headache(s) , weight loss Cardiovascular: PRESENT: dyspnea on exertion Respiratory: PRESENT: dyspnea - chronic Gastrointestinal: PRESENT: abdominal pain - focal to abdominal wall. ABSENT: dysphagia, nausea, vomiting Physical Exam Vital Signs: Temp Pulse Resp BP Pulse Ox 97.9 F 79 15 140/78 H 96 06/28/17 08:00 06/28/17 13:34 06/28/17 17:33 06/28/17 12:00 06/28/17 17:33 Intake & Output 06/27/17 06/28/17 06/29/17 06:59 06:59 06:59 Intake Total 1766 2061 0 Output Total 2750 2940 1125 Balance -984 -879 -1125 Weight 233.5 kg 245.5 kg General appearance: PRESENT: mild distress, morbidly obese Head exam: PRESENT: atraumatic, normocephalic Eye exam: PRESENT: conjunctiva pink Mouth exam: PRESENT: moist Neck exam: ABSENT: JVD, lymphadenopathy, tracheal deviation Respiratory exam: PRESENT: decreased breath sounds Cardiovascular exam: PRESENT: RRR Pulses: PRESENT: normal dorsalis pedis pul GI/Abdominal exam: PRESENT: diminished bowel sounds, other - edema of the abdominal wall, no focal cellulitis or erythema, granulomatous changes likely 2nd to scar from prior incisions and infections, intertrigo and panniculitis present at this time. ABSENT: guarding Extremities exam: PRESENT: +2 edema Neurological exam: PRESENT: alert, awake, oriented to person, oriented to place , oriented to time, oriented to situation, CN II-XII grossly intact. ABSENT: motor sensory deficit Results Laboratory Results: 06/27/17 03:58 06/28/17 06:55 06/27/17 06/27/17 06/28/17 21:15 21:35 06:55 Carbonic Acid 1.95 H HCO3/H2CO3 Ratio 15:1 ABG pH 7.30 L ABG pCO2 64.7 H ABG pO2 71.0 L ABG HCO3 31.0 H ABG O2 Saturation 92.1 L ABG Base Excess 2.6 FiO2 40% Sodium 139.4 141.2 Potassium 4.9 5.0 Chloride 100 102 Carbon Dioxide 31 H 30 Anion Gap 8 9 BUN 29 H 27 H Creatinine 1.44 H 1.09 Est GFR ( Amer) 47 L > 60 Est GFR (Non-Af Amer) 39 L 54 L Glucose 213 H 195 H Calcium 8.9 8.8 Magnesium 2.0 2.1 06/26/17 06/26/17 06/26/17 01:04 01:04 08:30 Creatine Kinase 31 70 CK-MB (CK-2) 0.82 Troponin I < 0.012 06/26/17 06/26/17 06/26/17 08:30 14:25 14:25 Creatine Kinase 58 CK-MB (CK-2) 3.32 2.78 Troponin I < 0.012 < 0.012 06/27/17 06/27/17 06/28/17 21:35 21:35 06:55 Creatine Kinase 69 41 CK-MB (CK-2) 1.37 Troponin I < 0.012 06/28/17 06/28/17 06/28/17 07:39 15:50 15:50 Creatine Kinase 36 CK-MB (CK-2) 0.95 0.85 Troponin I < 0.012 < 0.012 Impressions: Chest X-Ray 06/27/17 00:00 IMPRESSION: Moderate CHF pattern ; differential diagnosis includes pulmonary edema and pneumonia. Central line tip at level of right paracentral neck ; clinician aware as confirmed with technologist. Status: Imported from PACS Assessment & Plan - Diagnosis (1) Cellulitis Qualifiers: Site of cellulitis: trunk Site of cellulitis of trunk: abdominal wall Qualified Code(s): L03.311 - Cellulitis of abdominal wall Is this a current diagnosis for this admission?: No Plan: Continue topical treatment with regular bathing of the area at minimum twice a day with application of nystatin as well as different modalities to maintain dryness of the area. Without improvement may require silver impregnated dressing to the area. Discussion with the medicine team warranted ultrasound for assessment of the area given the palpable edema of the abdominal wall pending results. Will follow. - Time Time Spent: 30 to 50 Minutes
--- NOTE | 2017-06-28 21:18 | RADIOLOGY REPORT (SQ) ---
EXAM DESCRIPTION: U/S ABDOMEN LIMITED W/O DOP COMPLETED DATE/TIME: 06/28/2017 8:48 pm REASON FOR STUDY: Left abdominal fold cellulitis possible abcess COMPARISON: November 2015 TECHNIQUE: Sonographic sections through the superficial soft tissues of the left lower quadrant was performed. LIMITATIONS: Study is limited due to the patient's body habitus. FINDINGS: Diffuse edematous or inflammatory changes are identified most consistent with a cellulitis . There is a possible fluid collection identified in the left lower quadrant measuring 3.4 x 1.8 cm in diameters which I cannot exclude as an abscess collection. IMPRESSION: Limited study due to the patient's body habitus. Diffuse edematous or inflammatory trimble ges are identified most consistent with a cellulitis. There is possible fluid collection in the left lower quadrant as noted above which I cannot exclude is an abscess collection. Other findings as no radha above TECHNICAL DOCUMENTATION: JOB ID: [id number]- All Rights Reserved
[2017-06-29] MEDS: IPRATROPIUM/ALBUTEROL 0.5-2.5 MG/3 ML AMPUL NEB SCH ×4 (02:10→20:30)
[2017-06-29] MEDS: PIPERACILLIN SODIUM/TAZOBACTAM 3.375 GM in DEXTROSE 5%-WATER 100 ML IV SCH ×4 (04:25→21:56)
[2017-06-29] MEDS: ACETAMINOPHEN 325 MG TABLET PO PRN ×3 (05:41→23:08)
[2017-06-29] MEDS: HEPARIN SOD (PORCINE) 5,000 UNIT/ML 1 ML SYRINGE SUBCUT SCH ×3 (05:41→21:59)
[2017-06-29 06:07] LABS: ARTERIAL BLOOD BASE EXCESS 8.4 mmol/L; ARTERIAL BLOOD O2 SATURATION 94.4 % (94-98)
[2017-06-29] MEDS: INSULIN GLARGINE,HUM.REC.ANLOG 1,000 UNIT/10 ML UNIT SUBCUT SCH (08:32)
[2017-06-29] MEDS: INSULIN LISPRO 100 UNIT/ML 3 ML VIAL SUBCUT PRN ×4 (08:33→23:08)
[2017-06-29] MEDS: GABAPENTIN 300 MG CAPSULE PO SCH ×3 (08:33→22:03)
[2017-06-29] MEDS: NICOTINE 21 MG/24 HR PATCH.TD24 TD SCH (10:12)
[2017-06-29] MEDS: FLUCONAZOLE 100 MG TABLET PO SCH (10:12)
[2017-06-29] MEDS: GLIMEPIRIDE 4 MG TABLET PO SCH (10:12)
[2017-06-29] MEDS: DOCUSATE SODIUM 100 MG CAPSULE PO SCH ×2 (10:12→18:26)
[2017-06-29] MEDS: VENLAFAXINE HCL 75 MG CAP.SR.24H PO SCH (10:12)
[2017-06-29] MEDS: METOPROLOL TARTRATE 25 MG TABLET PO SCH ×2 (10:12→22:04)
[2017-06-29] MEDS: NYSTATIN TOPICAL POWDER 15 GM TP SCH ×2 (11:49→18:33)
--- NOTE | 2017-06-29 11:52 | PDOC PROGRESS REPORT ---
Subjective Progress Note for:: 06/29/17 Subjective:: Patient states that her anxiety and chronic back pain are uncontrolled since discontinuing home medications upon admission. She states that if she has to live like this, is not worth living. She questions whether or not she should remain a full code, however, clarifies that she is not ready to "give up today. " She states that her breathing is slightly improved and did not use BiPAP overnight. She reports that her LLQ abd pain is also improving. She reports anxiety r/t surgical evaluation pending u/s results demonstrating a possible abscess. She denies fatigue, chest pain, cough, nausea, vomiting, diarrhea/constipation. Physical Exam Vital Signs: Temp Pulse Resp BP Pulse Ox 98.4 F 92 22 H 127/72 H 91 L 06/29/17 07:42 06/29/17 07:42 06/29/17 07:42 06/29/17 07:42 06/29/17 07:42 Intake & Output 06/28/17 06/29/17 06/30/17 06:59 06:59 06:59 Intake Total 2061 795 Output Total 2940 1895 Balance -879 -1100 Weight 245.5 kg 236.6 kg General appearance: PRESENT: no acute distress, morbidly obese, well-developed, well-nourished Head exam: PRESENT: atraumatic, normocephalic Eye exam: PRESENT: EOMI, PERRLA. ABSENT: conjunctival injection, scleral icterus Ear exam: PRESENT: normal external ear exam Mouth exam: PRESENT: moist, neck supple Neck exam: PRESENT: full ROM, thyromegaly. ABSENT: JVD, lymphadenopathy Respiratory exam: PRESENT: decreased breath sounds - bibasilar, symmetrical, tachypnea Cardiovascular exam: PRESENT: +S1, +S2, tachycardia. ABSENT: gallop, rubs, systolic murmur Pulses: PRESENT: normal radial pulses Vascular exam: PRESENT: normal capillary refill GI/Abdominal exam: PRESENT: normal bowel sounds, tenderness - LLQ/Lt lateral pannus w/ errythema and tenderness to palpation Rectal exam: PRESENT: deferred Extremities exam: PRESENT: +1 edema - pedal to pertibular nonpitting Musculoskeletal exam: PRESENT: tenderness - chronic back pain; worsend w/ ROM Neurological exam: PRESENT: alert, oriented to person, oriented to place, oriented to time, oriented to situation, CN II-XII grossly intact Psychiatric exam: PRESENT: anxious, depressed Skin exam: PRESENT: dry, erythema - Left lower quadrant/pannus, warm, other - Numerous, discrete, open shallow lesions with slight erythema to chest and abdomen. No drainage present.. ABSENT: jaundice Results Laboratory Results: 06/27/17 03:58 06/28/17 06:55 06/29/17 05:45 Carbonic Acid 1.74 H HCO3/H2CO3 Ratio 20:1 ABG pH 7.40 ABG pCO2 57.8 H ABG pO2 73.1 L ABG HCO3 35.1 H ABG O2 Saturation 94.4 ABG Base Excess 8.4 FiO2 40% 06/26/17 06/26/17 06/26/17 01:04 01:04 08:30 Creatine Kinase 31 70 CK-MB (CK-2) 0.82 Troponin I < 0.012 06/26/17 06/26/17 06/26/17 08:30 14:25 14:25 Creatine Kinase 58 CK-MB (CK-2) 3.32 2.78 Troponin I < 0.012 < 0.012 06/27/17 06/27/17 06/28/17 21:35 21:35 06:55 Creatine Kinase 69 41 CK-MB (CK-2) 1.37 Troponin I < 0.012 06/28/17 06/28/17 06/28/17 07:39 15:50 15:50 Creatine Kinase 36 CK-MB (CK-2) 0.95 0.85 Troponin I < 0.012 < 0.012 Impressions: Chest X-Ray 06/27/17 00:00 IMPRESSION: Moderate CHF pattern ; differential diagnosis includes pulmonary edema and pneumonia. Central line tip at level of right paracentral neck ; clinician aware as confirmed with technologist. Abdomen Ultrasound 06/28/17 13:40 IMPRESSION: Limited study due to the patient's body habitus. Diffuse edematous or inflammatory changes are identified most consistent with a cellulitis. There is possible fluid collection in the left lower quadrant as noted above which I cannot exclude is an abscess collection. Other findings as noted above Assessment & Plan - Diagnosis (1) Acute and chronic respiratory failure with hypercapnia Is this a current diagnosis for this admission?: Yes Plan: 1- supplemental oxygen to keep O2 sat greater than 88% 2- BiPAP as needed 3- appreciate palliative care consultation (2) Cellulitis Qualifiers: Site of cellulitis: trunk Site of cellulitis of trunk: abdominal wall Qualified Code(s): L03.311 - Cellulitis of abdominal wall Is this a current diagnosis for this admission?: Yes Plan: Ultrasound demonstrated potential abscess. 1- appreciate surgical consultation. 2 - Continue pip/tazo (3) Diabetes Qualifiers: Diabetes mellitus type: type 2 Diabetes mellitus complication status: with unspecified complications Diabetes mellitus facing baster jumpbasting insulin use: with chcf use Qualified Code(s): E11.8 - Type 2 diabetes mellitus with unspecified complications; Z79.4 - nursing home (current) use of insulin Is this a current diagnosis for this admission?: Yes Plan: 1- Lantus and sliding scale insulin 2- continue Amaryl 3- monitor BGL before meals at bedtime (4) Chronic pain Qualifiers: Chronic pain type: other chronic pain Qualified Code(s): G89.29 - Other chronic pain Is this a current diagnosis for this admission?: Yes Plan: Home medications initially discontinued secondary to respiratory failure. Long discussion today with patient with regard to sedation and respiratory depression risks related to multiple sedating medications. Will restart oxycodone at lower dosing and frequency. Monitor closely. 1- oxycodone 5 mg every 12 H as needed pain (5) Morbid obesity with BMI of 70 and over, adult Is this a current diagnosis for this admission?: Yes (6) CARY (obstructive sleep apnea) Is this a current diagnosis for this admission?: Yes Plan: 1- Encouraged tobacco cessation 2- BiPAP as needed, CPAP as outpatient qHS (7) COPD (chronic obstructive pulmonary disease) Qualifiers: COPD type: unspecified COPD Qualified Code(s): J44.9 - Chronic obstructive pulmonary disease, unspecified Is this a current diagnosis for this admission?: Yes Plan: Admittedly noncompliant with home medications 1- encourage smoking cessation 2- consider LABA/LAMA 3- Cont nebs (8) Tobacco abuse Is this a current diagnosis for this admission?: Yes Plan: 1- encourage smoking cessation 2- nicotine replacement therapy (9) SIRS (systemic inflammatory response syndrome) Is this a current diagnosis for this admission?: Yes Plan: Resolved (10) Acute renal failure Is this a current diagnosis for this admission?: Yes Plan: Resolved; continue to monitor (11) Hyperkalemia Is this a current diagnosis for this admission?: Yes Plan: Resolved, continue to monitor - Time Smoking Cessation Education: 3 to 10 minutes Medications reviewed and adjusted accordingly: Yes
[2017-06-29] MEDS: OXYCODONE HCL IR 5 MG TABLET PO PRN (11:56)
--- NOTE | 2017-06-29 12:16 | Palliative Consultation Report ---
Consultation From:: MARTHA SMITH Consult Reason: Panniculitis, possible abscess - HPI HPI: Appreciate Palliative Care consult request for this 47 year old woman who has been admitted with respiratory failure and panniculitis/cellulitis. Mrs. Ospina is frequently admitted to hospital due to respiratory failure related to her morbid obesity, COPD and use of methadone and antianxiety meds. She was maintained this admission with Bipap and did not require intubation. At this time, Mrs. ospina discussed her life and lack of quality. She states she does not want to continue this cycle. SHe does not want to be intubated or have CPR. She would like to be able to stay at home, be kept comfortable and naturally. She said her doesnt agree with this decision but she has not spoken to him about it recently. Her step mother works with hospice and has talked to her about hospice but has told her she should not go with hospice at this time. After a long discussion, she realizes that hospice is not appropriate for patients who want admission to hospital and full code when their symptoms get worse. She says she wants to be kept comfortable the next time her lungs are failing and not just "left to ". But she doesnt want to keep coming to the hospital and does not want intubation. In further discussion with her, she says she wants to go home right now because she is not getting any of her medications for her nerves and nothing for pain. Her desire is to be discharged today and allowed to go home with hospice. I told her this decision will require some conversation with her family especially her who cares for her. We discussed that he will be supported by hospice in caring for her, but he needs to know what her feelings are and why, and he may need some time to adjust to this. It is certainly her decision to make but it does also involve her family. Making her a DNR is very doable today and the hospitalist is aware that this is her wish now. But going home with hospice with the intent of dying at home and not returning to the hospital is more complex, although still her decision to make. Onset: Just prior to arrival Onset/Duration: Sudden Quality of Pain: Achy, Fullness Severity: Moderate Past Medical History(Consults) - General Information Source: Patient Home Medications: Gabapentin [Neurontin 300 mg Capsule] 300 mg PO Q8 06/26/17 Glimepiride [Amaryl 4 mg Tablet] 4 mg PO BID 06/26/17 Insulin Glargine,Hum.rec.anlog [Nasra Bradley] 150 unit SQ DAILY 06/26/17 Lisinopril [Prinivil 2.5 mg Tablet] 2.5 mg PO DAILY 06/26/17 Methadone HCl [Dolophine 10 mg Tablet] 20 mg PO Q12 06/26/17 Metoprolol Tartrate [Lopressor 50 mg Tablet] 50 mg PO Q12 06/26/17 Oxycodone HCl [Oxy-Ir 5 mg Tablet] 5 mg PO Q8 06/26/17 Venlafaxine HCl [Effexor 75 mg Tablet] 225 mg PO DAILY 06/26/17 Allergies/Adverse Reactions: ceftriaxone sodium [From Rocephin] Allergy (Unknown, Verified 06/26/17 02:16) Generalized Itching levofloxacin [From Levaquin] Allergy (Unknown, Verified 06/26/17 02:16) Generalized Itching adhesive tape [Adhesive Tape] Allergy (Verified 06/26/17 02:16) latex [Latex] Allergy (Verified 06/26/17 02:16) morphine [Morphine] Allergy (Verified 06/26/17 02:16) Eczematous dermatitis vancomycin [Vancomycin] Adverse Reaction (Severe, Verified 06/26/17 02:16) Renal failure bacitracin [From Neosporin] Adverse Reaction (Unknown, Verified 06/26/17 02:16) Generalized rash gramicidin D [From Neosporin] Adverse Reaction (Unknown, Verified 06/26/17 02:16 ) Generalized rash neomycin sulfate [From Neosporin] Adverse Reaction (Unknown, Verified 06/26/17 02:16) Generalized rash polymyxin B [From Neosporin] Adverse Reaction (Unknown, Verified 06/26/17 02:16) Generalized rash - Social History Lives with: Spouse/Significant other Family History: Reviewed & Not Pertinent - No one with DVT. No one with pulmonary emboli. Parental Family History Reviewed: No Children Family History Reviewed: No Sibling(s) Family History Reviewed.: No Smoking Status: Current Every Day Smoker Cigarettes Packs Per Day: 1 Number of Years Smokin Last Time Smoked: 06/25/17 Frequency of Alcohol Use: None Hx Recreational Drug Use: No Drugs: None Hx Prescription Drug Abuse: No - Past Medical History Cardiac Medical History: Reports: Hx Congestive Heart Failure, Hx Hypercholesterolemia, Hx Hypertension Pulmonary Medical History: Reports: Hx COPD - On home oxygen at 4 L, Hx Sleep Apnea Denies: Hx Tuberculosis Endocrine Medical History: Reports: Hx Diabetes Mellitus Type 1, Hx Diabetes Mellitus Type 2 - On Lantus, Humalog, Amaryl Renal/ Medical History: Reports: Hx Hemodialysis - History of; no longer, Hx Renal Insufficiency - 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 Suspected vancomycin allergy Skin Medical History: Reports Hx Cellulitis Psychiatric Medical History: Reports: Hx Anxiety, Hx Depression - Surgical History Past Surgical History: Reports: Hx Abdominal Surgery - Abdominal wall abscess, incision and drainage., Hx Orthopedic Surgery - right knee, right arm, Other - CVC I&D of abdominal wall abscess - Immunizations Immunizations up to date: Yes Review of systems Constitutional: Weakness EENT: No symptoms reported Cardiovascular: No symptoms reported Respiratory: Cough, Short of breath Gastrointestinal: Abdominal pain Geniturinary: No symptoms reported Female Genitourinary: No symptoms reported Musculoskeltal: No symptoms reported Skin: Rash, Other - cellulitis, yeast infection panniculus Hematologic/Lymphatic: No symptoms reported Neurological/Psychological: Anxiety Ojective:Exam Vital Signs: Temp Pulse Resp BP Pulse Ox 98.4 F 92 22 H 127/72 H 91 L 06/29/17 07:42 06/29/17 07:42 06/29/17 07:42 06/29/17 07:42 06/29/17 07:42 Intake & Output 06/28/17 06/29/17 06/30/17 06:59 06:59 06:59 Intake Total 2061 795 Output Total 2940 1895 Balance -879 -1100 Weight 245.5 kg 236.6 kg - General General Appearance: Alert, Anxious In distress: Mild - HEENT Head: Normocephalic Eyes: Normal Conjunctiva: Normal Pupils: PERRLA - Respiratory Respiratory Status: Labored - On oxygen per NC Chest Status: Pain with cough Breath sounds: Rhonchi - Cardiovascular Rhythm: Regular Pulses: Normal: Radial - Abdominal Inspection: Obese, limiting Exam - Being treated for severe yeast and cellulitis between skin folds and under pannus bilaterlly - Neurological Cognition: Normal Orientation: AAOx4, Oriented to time Speech: Normal Cranial nerves: Normal - Psychological Associated symptoms: Anxious, Tearful Objective-Diagnostic Laboratory: 06/27/17 03:58 06/28/17 06:55 06/29/17 05:45 Carbonic Acid 1.74 H HCO3/H2CO3 Ratio 20:1 ABG pH 7.40 ABG pCO2 57.8 H ABG pO2 73.1 L ABG HCO3 35.1 H ABG O2 Saturation 94.4 ABG Base Excess 8.4 FiO2 40% 06/26/17 06/26/17 06/26/17 01:04 01:04 08:30 Creatine Kinase 31 70 CK-MB (CK-2) 0.82 Troponin I < 0.012 06/26/17 06/26/17 06/26/17 08:30 14:25 14:25 Creatine Kinase 58 CK-MB (CK-2) 3.32 2.78 Troponin I < 0.012 < 0.012 06/27/17 06/27/17 06/28/17 21:35 21:35 06:55 Creatine Kinase 69 41 CK-MB (CK-2) 1.37 Troponin I < 0.012 06/28/17 06/28/17 06/28/17 07:39 15:50 15:50 Creatine Kinase 36 CK-MB (CK-2) 0.95 0.85 Troponin I < 0.012 < 0.012 Plan and Recommendation Plan and Recommendation: Discussed with [employer] hospitalist. Discussed code status with patient as above and also discussed option of having hospice at home if she really is at the point that she doesnt want to come back to hospital. She is aware that there is nothing that can be done for her obesity due to her lungs and that her smoking is not helping her lungs. She knows that methadone and anxiety meds will be reduced or stopped when she has respiratory distress becsue they can add to the respiratory failure and as long as she wants to be full code or intubated, the medical staff will do everything they can to improve her respiratory status to not make her worse. She knows she has the right to be DNR and can make that decision, but I did advise her to talk with her family about her decision to help them understand why she wants DNR. Staff member from psychiatry came in at the end of my visit to evaluate patient. I will follow with patient and will let Zohra Calvert [employer] know that patient did indeed tell me she wanted to be DNR as she had discussed with her. Appreciate opportunity to assist with care. Would recommend treating her anxiety and pain so that her decision about being discharged with hospice is not made only to go home to have her medications. - Time Spent with Patient Time spent with patient: 15 to 30 Minutes - 55 minute spent in consultation with hospitlist,, review chart and discussion with patient.
--- NOTE | 2017-06-29 12:33 | PDOC PROGRESS REPORT ---
Subjective Progress Note for:: 06/29/17 Subjective:: Mrs Villegas is a 47-year-old female with chronic abdominal pain associated with panniculitis and recurrent intertrigo. Notable she also suffers from significant COPD requiring continuous use of CPAP and currently is still smoker. Discussion with the patient today today notes that she wishes to employ the possibility of palliative care. Physical Exam Vital Signs: Temp Pulse Resp BP Pulse Ox 98.4 F 92 22 H 127/72 H 91 L 06/29/17 07:42 06/29/17 07:42 06/29/17 07:42 06/29/17 07:42 06/29/17 07:42 Intake & Output 06/28/17 06/29/17 06/30/17 06:59 06:59 06:59 Intake Total 2061 795 Output Total 2940 1895 Balance -879 -1100 Weight 245.5 kg 236.6 kg General appearance: PRESENT: no acute distress, morbidly obese Head exam: PRESENT: atraumatic, normocephalic Eye exam: PRESENT: conjunctiva pink Pulses: PRESENT: normal dorsalis pedis pul GI/Abdominal exam: PRESENT: soft, tenderness, other - abdominal irritation of the posterior aspect of the pannus, focused to the right side, no palpable abscess, negative US Neurological exam: PRESENT: alert, awake, oriented to person, oriented to place , oriented to time, oriented to situation, CN II-XII grossly intact. ABSENT: motor sensory deficit Results Laboratory Results: 06/27/17 03:58 06/28/17 06:55 06/29/17 05:45 Carbonic Acid 1.74 H HCO3/H2CO3 Ratio 20:1 ABG pH 7.40 ABG pCO2 57.8 H ABG pO2 73.1 L ABG HCO3 35.1 H ABG O2 Saturation 94.4 ABG Base Excess 8.4 FiO2 40% 06/26/17 06/26/17 06/26/17 01:04 01:04 08:30 Creatine Kinase 31 70 CK-MB (CK-2) 0.82 Troponin I < 0.012 06/26/17 06/26/17 06/26/17 08:30 14:25 14:25 Creatine Kinase 58 CK-MB (CK-2) 3.32 2.78 Troponin I < 0.012 < 0.012 0906/27/17 06/28/17 21:35 21:35 06:55 Creatine Kinase 69 41 CK-MB (CK-2) 1.37 Troponin I < 0.012 06/28/17 06/28/17 06/28/17 07:39 15:50 15:50 Creatine Kinase 36 CK-MB (CK-2) 0.95 0.85 Troponin I < 0.012 < 0.012 Impressions: Chest X-Ray 06/27/17 00:00 IMPRESSION: Moderate CHF pattern ; differential diagnosis includes pulmonary edema and pneumonia. Central line tip at level of right paracentral neck ; clinician aware as confirmed with technologist. Abdomen Ultrasound 06/28/17 13:40 IMPRESSION: Limited study due to the patient's body habitus. Diffuse edematous or inflammatory changes are identified most consistent with a cellulitis. There is possible fluid collection in the left lower quadrant as noted above which I cannot exclude is an abscess collection. Other findings as noted above Status: Imported from PACS Assessment & Plan - Diagnosis (1) Cellulitis Qualifiers: Site of cellulitis: trunk Site of cellulitis of trunk: abdominal wall Qualified Code(s): L03.311 - Cellulitis of abdominal wall Is this a current diagnosis for this admission?: Yes Plan: No abscess for intervention at this time. Patient was made aware if she wishes any surgical further consultation to have the nursing staff call. - Time Time Spent with patient: Less than 15 minutes
[2017-06-30] MEDS: OXYCODONE HCL IR 5 MG TABLET PO PRN ×2 (00:34→13:34)
[2017-06-30] MEDS: IPRATROPIUM/ALBUTEROL 0.5-2.5 MG/3 ML AMPUL NEB SCH ×4 (03:13→20:04)
[2017-06-30] MEDS: PIPERACILLIN SODIUM/TAZOBACTAM 3.375 GM in DEXTROSE 5%-WATER 100 ML IV SCH ×4 (03:21→21:13)
[2017-06-30] MEDS: HEPARIN SOD (PORCINE) 5,000 UNIT/ML 1 ML SYRINGE SUBCUT SCH ×3 (06:21→21:07)
[2017-06-30] MEDS: ACETAMINOPHEN 325 MG TABLET PO PRN ×3 (06:22→21:08)
[2017-06-30] MEDS: INSULIN GLARGINE,HUM.REC.ANLOG 1,000 UNIT/10 ML UNIT SUBCUT SCH (08:28)
[2017-06-30] MEDS: GABAPENTIN 300 MG CAPSULE PO SCH ×3 (08:28→21:07)
[2017-06-30] MEDS: NICOTINE 21 MG/24 HR PATCH.TD24 TD SCH (10:26)
[2017-06-30] MEDS: MULTIVITAMIN TABLET PO SCH (10:27)
[2017-06-30] MEDS: METOPROLOL TARTRATE 25 MG TABLET PO SCH ×2 (10:27→21:12)
[2017-06-30] MEDS: DOCUSATE SODIUM 100 MG CAPSULE PO SCH ×2 (10:27→17:37)
[2017-06-30] MEDS: VENLAFAXINE HCL 75 MG CAP.SR.24H PO SCH (10:27)
[2017-06-30] MEDS: GLIMEPIRIDE 4 MG TABLET PO SCH (10:28)
[2017-06-30] MEDS: NYSTATIN TOPICAL POWDER 15 GM TP SCH ×2 (10:50→17:38)
[2017-06-30 13:34] LABS: ABSOLUTE BASOPHILS # (AUTO) 0.1 10^3/uL (0.0-0.2); ABSOLUTE EOSINOPHILS # (AUTO) 0.3 10^3/uL (0.0-0.6); ABSOLUTE LYMPHOCYTES (AUTO) 1.6 10^3/uL (0.5-4.7); ABSOLUTE MONOCYTES (AUTO) 0.5 10^3/uL (0.1-1.4); EOSINOPHILS % (AUTO) 3.7 % (0-6); HEMATOCRIT 43.9 % (36.0-47.0); HEMOGLOBIN 13.6 g/dL (12.0-15.5); HGB HCT DIFFERENCE -3.1; LYMPHOCYTES % (AUTO) 21.5 % (13-45); MEAN CORPUSCULAR HEMOGLOBIN 25.4 pg (27.0-33.4); MEAN CORPUSCULAR HGB CONC 31.1 g/dL (32.0-36.0); MEAN CORPUSCULAR VOLUME 82 fl (80-97); MONOCYTES % (AUTO) 7.1 % (3-13); RED BLOOD COUNT 5.36 10^6/uL (3.72-5.28); RED CELL DISTRIBUTION WIDTH 20.3 % (11.5-14.0); SEGMENTED NEUTROPHILS % (AUTO) 66.7 % (42-78); WHITE BLOOD COUNT 7.5 10^3/uL (4.0-10.5)
[2017-06-30 13:54] LABS: ANION GAP 11 (5-19); BLOOD UREA NITROGEN 17 mg/dL (7-20); CALCIUM 9.4 mg/dL (8.4-10.2); CARBON DIOXIDE 31 mmol/L (22-30); CHLORIDE 99 mmol/L (98-107); CREATININE RESULT 0.88 mg/dL (0.52-1.25); GLUCOSE 174 mg/dL (75-110); POTASSIUM 4.6 mmol/L (3.6-5.0); SODIUM 141.3 mmol/L (137-145)
--- NOTE | 2017-06-30 14:35 | PDOC PROGRESS REPORT ---
Subjective Progress Note for:: 06/30/17 Subjective:: Patient is seen sitting up on the edge of her bed with her family present. She introduces me to her brother and her father. Reports that her breathing has continued to improve overnight. She did use the BiPAP, however stated that it was in preparation of discharge home and resumption of CPAP. She denies dyspnea and cough. She remains on supplemental oxygen at 5 L by nasal cannula. She is relieved that surgery is not planning and intervention for the cellulitis and abscess of her pannus. She reports that her abdominal pain continues to improve and is now less of a concern than her chronic back pain. She asks to have her methadone resumed at her home dose. Long discussion had again with family present with regard to sedation risk leading to worsening respiratory failure. Patient reports that the oxycodone was helpful overnight however only lasted a couple of hours. Discussed with patient and family end-of-life goals of care. Patient had met with palliative care yesterday and felt it important to let family know that she wishes to be a DNR. She states that she knows that she will continue to have problems with respiratory failure related to her morbid obesity and anticipates desire for comfort care at that time. 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 Physical Exam Vital Signs: Temp Pulse Resp BP Pulse Ox 99.2 F 90 23 H 107/50 L 91 L 06/30/17 12:32 06/30/17 12:32 06/30/17 12:32 06/30/17 12:32 06/30/17 12:32 Intake & Output 06/29/17 06/30/17 07/01/17 06:59 06:59 06:59 Intake Total 795 1532 709 Output Total 1895 4000 700 Balance -1100 -2468 9 Weight 236.6 kg 236.6 kg General appearance: PRESENT: no acute distress, cooperative, morbidly obese, well-developed Head exam: PRESENT: atraumatic, normocephalic Eye exam: PRESENT: conjunctiva pink, EOMI, PERRLA. ABSENT: scleral icterus Ear exam: PRESENT: normal external ear exam Mouth exam: PRESENT: moist, tongue midline Neck exam: PRESENT: full ROM. ABSENT: carotid bruit, JVD, lymphadenopathy, thyromegaly Respiratory exam: PRESENT: clear to auscultation ayah, symmetrical, unlabored, other - remians on 5L via NC. ABSENT: crackles, rales, rhonchi Cardiovascular exam: PRESENT: RRR, +S1, +S2. ABSENT: gallop, rubs, systolic murmur, tachycardia Pulses: PRESENT: normal radial pulses, normal dorsalis pedis pul Vascular exam: PRESENT: normal capillary refill GI/Abdominal exam: PRESENT: normal bowel sounds, soft, tenderness - LLQ/Lt lateral pannus w/ tenderness and errythema; improved from yesterday. Continues to drain small amount of purulent fluid. Extremities exam: PRESENT: pedal edema, +1 edema. ABSENT: calf tenderness Musculoskeletal exam: PRESENT: ambulatory, full ROM, tenderness - r/t chronic back pain Neurological exam: PRESENT: alert, awake, oriented to person, oriented to place , oriented to time, oriented to situation, CN II-XII grossly intact. ABSENT: motor sensory deficit Psychiatric exam: PRESENT: appropriate affect, normal mood Skin exam: PRESENT: erythema - as above, other - Numerous, discrete, open shallow lesions with slight erythema to chest and abdomen. No drainage present.. ABSENT: jaundice Results Laboratory Results: 06/30/17 13:10 06/30/17 13:10 06/29/17 06/30/17 06/30/17 20:57 13:10 13:10 WBC 7.5 RBC 5.36 H Hgb 13.6 Hct 43.9 MCV 82 MCH 25.4 L MCHC 31.1 L RDW 20.3 H Plt Count 258 Seg Neutrophils % 66.7 Lymphocytes % 21.5 Monocytes % 7.1 Eosinophils % 3.7 Basophils % 1.0 Absolute Neutrophils 5.0 Absolute Lymphocytes 1.6 Absolute Monocytes 0.5 Absolute Eosinophils 0.3 Absolute Basophils 0.1 Sodium 141.3 Potassium 4.6 Chloride 99 Carbon Dioxide 31 H Anion Gap 11 BUN 17 Creatinine 0.88 Est GFR ( Amer) > 60 Est GFR (Non-Af Amer) > 60 Glucose 174 H Calcium 9.4 Serum HCG, Qual NEGATIVE 06/26/17 06/26/17 06/26/17 01:04 01:04 08:30 Creatine Kinase 31 70 CK-MB (CK-2) 0.82 Troponin I < 0.012 06/26/17 06/26/17 06/26/17 08:30 14:25 14:25 Creatine Kinase 58 CK-MB (CK-2) 3.32 2.78 Troponin I < 0.012 < 0.012 06/27/17 06/27/17 06/28/17 21:35 21:35 06:55 Creatine Kinase 69 41 CK-MB (CK-2) 1.37 Troponin I < 0.012 06/28/17 06/28/17 06/28/17 07:39 15:50 15:50 Creatine Kinase 36 CK-MB (CK-2) 0.95 0.85 Troponin I < 0.012 < 0.012 Impressions: Chest X-Ray 06/27/17 00:00 IMPRESSION: Moderate CHF pattern ; differential diagnosis includes pulmonary edema and pneumonia. Central line tip at level of right paracentral neck ; clinician aware as confirmed with technologist. Abdomen Ultrasound 06/28/17 13:40 IMPRESSION: Limited study due to the patient's body habitus. Diffuse edematous or inflammatory changes are identified most consistent with a cellulitis. There is possible fluid collection in the left lower quadrant as noted above which I cannot exclude is an abscess collection. Other findings as noted above Assessment & Plan - Diagnosis (1) Acute and chronic respiratory failure with hypercapnia Is this a current diagnosis for this admission?: Yes Plan: Improving 1- Supplemental oxygen to keep O2 sat greater than 88%; discussed w/ nursing - to trial weaning O2 2- BiPAP as needed 3- Encouraged mobility/ambulation 4- Appreciate palliative care consultation (2) Cellulitis Qualifiers: Site of cellulitis: trunk Site of cellulitis of trunk: abdominal wall Qualified Code(s): L03.311 - Cellulitis of abdominal wall Is this a current diagnosis for this admission?: Yes Plan: Improving 1- Appreciate surgical consultation; no plan for surgical intervention at this time 2 - Continue pip/tazo 3- Meticulous skin care w/ nystatin powder (3) Diabetes Qualifiers: Diabetes mellitus type: type 2 Diabetes mellitus complication status: with unspecified complications Diabetes mellitus halfway insulin use: with halfway use Qualified Code(s): E11.8 - Type 2 diabetes mellitus with unspecified complications; 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 Long discussion today with patient with regard to sedation and respiratory depression risks related to multiple sedating medications. Pharmacy verified pt's home methadone dose: 20 mg BID. Pt very unhappy w/ current pain management and fully acknowledges respiratory risks w/ resuming previous medications/dosing. Will add low dose methadone today. Monitor closely. 1- Methadone 5 mg every 12 h scheduled 2- Continue oxycodone 5 mg every 12 H as needed pain 3- Encouraged non-pharmacological interventions (5) Morbid obesity with BMI of 70 and over, adult Is this a current diagnosis for this admission?: Yes Plan: 1- Appreciate RD recommendations (6) COPD (chronic obstructive pulmonary disease) Qualifiers: COPD type: unspecified COPD Qualified Code(s): J44.9 - Chronic obstructive pulmonary disease, unspecified Is this a current diagnosis for this admission?: Yes Plan: Admittedly noncompliant with home medications 1- encourage smoking cessation 2- consider LABA/LAMA 3- Cont nebs (7) CARY (obstructive sleep apnea) Is this a current diagnosis for this admission?: Yes Plan: 1- Encouraged tobacco cessation 2- BiPAP as needed, CPAP as outpatient qHS (8) Tobacco abuse Is this a current diagnosis for this admission?: Yes (9) SIRS (systemic inflammatory response syndrome) Is this a current diagnosis for this admission?: Yes Plan: Resolved (10) Acute renal failure Is this a current diagnosis for this admission?: Yes Plan: Resolved; continue to monitor (11) Hyperkalemia Is this a current diagnosis for this admission?: Yes Plan: Resolved, continue to monitor - Time Time Spent with patient: 25-34 minutes Smoking Cessation Education: 3 to 10 minutes Medications reviewed and adjusted accordingly: Yes
[2017-06-30] MEDS: INSULIN LISPRO 100 UNIT/ML 3 ML VIAL SUBCUT PRN ×3 (14:37→22:29)
[2017-06-30] MEDS: METHADONE HCL 10 MG TABLET PO SCH (21:10)
[2017-07-01] MEDS: OXYCODONE HCL IR 5 MG TABLET PO PRN ×2 (02:12→22:39)
[2017-07-01] MEDS: PIPERACILLIN SODIUM/TAZOBACTAM 3.375 GM in DEXTROSE 5%-WATER 100 ML IV SCH ×3 (02:15→14:38)
[2017-07-01] MEDS: IPRATROPIUM/ALBUTEROL 0.5-2.5 MG/3 ML AMPUL NEB SCH ×4 (02:20→20:30)
[2017-07-01] MEDS: HEPARIN SOD (PORCINE) 5,000 UNIT/ML 1 ML SYRINGE SUBCUT SCH ×3 (05:48→22:29)
[2017-07-01] MEDS ORDERED: ONDANSETRON HCL INJ/PF 4 MG/2 ML SDV IV PRN (07:30)
[2017-07-01] MEDS ORDERED: ACETAMINOPHEN 325 MG TABLET PO PRN (07:30)
[2017-07-01] MEDS ORDERED: MAGNESIUM HYDROXIDE SUSP 30 ML UDCUP PO PRN (07:30)
[2017-07-01] MEDS: INSULIN GLARGINE,HUM.REC.ANLOG 1,000 UNIT/10 ML UNIT SUBCUT SCH (08:03)
[2017-07-01] MEDS: GABAPENTIN 300 MG CAPSULE PO SCH ×3 (08:04→22:30)
[2017-07-01] MEDS: INSULIN LISPRO 100 UNIT/ML 3 ML VIAL SUBCUT PRN ×4 (08:04→22:29)
[2017-07-01] MEDS: METHADONE HCL 10 MG TABLET PO SCH ×2 (10:36→22:29)
[2017-07-01] MEDS: VENLAFAXINE HCL 75 MG CAP.SR.24H PO SCH (10:37)
[2017-07-01] MEDS: MULTIVITAMIN TABLET PO SCH (10:37)
[2017-07-01] MEDS: METOPROLOL TARTRATE 25 MG TABLET PO SCH ×2 (10:37→22:31)
[2017-07-01] MEDS: DOCUSATE SODIUM 100 MG CAPSULE PO SCH ×2 (10:38→17:18)
[2017-07-01] MEDS: GLIMEPIRIDE 4 MG TABLET PO SCH (10:38)
[2017-07-01] MEDS: NICOTINE 21 MG/24 HR PATCH.TD24 TD SCH (10:39)
[2017-07-01] MEDS: NYSTATIN TOPICAL POWDER 15 GM TP SCH ×2 (10:40→17:18)
--- NOTE | 2017-07-01 15:51 | PDOC PROGRESS REPORT ---
Subjective Progress Note for:: 07/01/17 Subjective:: Patient is seen sitting up oin bed with her family present. She introduces me to her . She reports that her breathing has continued to improve overnight. She did use the BiPAP, while sleeping and has remained primarily on supplemental oxygen at 4L via NC except for a short period this AM when she was placed on BiPAP for [place] after completing her ADLs. Pt has been able to get out of bed without assistance, completed most ADLs independently this AM, and is now attempting to ambulate to the restroom vs use of bedside commode. She reports that her pain is moderately well controlled with current regiment, though dose ask to have methadone increased. Discussed risks of respiratory failure r/t sedation from medications. Pt states she understands reasoning for slow titration of medication w/ goal to manage pain non-pharmacologically in addition to lower dosed medications. She and her discuss intentions to manage diabetes through improved dietary changes. She is optimistic today, stating that she feels like she has made a lot of progress throughout this admission and is hopeful for a discharge home in the morning. Physical Exam Vital Signs: Temp Pulse Resp BP Pulse Ox 98.0 F 107 H 20 119/71 91 L 07/01/17 07:13 07/01/17 14:25 07/01/17 14:25 07/01/17 07:13 07/01/17 07:47 Intake & Output 06/30/17 07/01/17 07/02/17 06:59 06:59 06:59 Intake Total 1532 2453 236 Output Total 4000 3200 900 Balance -2468 -747 -664 Weight 236.6 kg 256 kg General appearance: PRESENT: no acute distress, cooperative, morbidly obese, well-developed Head exam: PRESENT: atraumatic, normocephalic Eye exam: PRESENT: conjunctiva pink, EOMI, PERRLA. ABSENT: scleral icterus Ear exam: PRESENT: normal external ear exam Mouth exam: PRESENT: moist, neck supple, tongue midline Neck exam: PRESENT: full ROM. ABSENT: JVD, lymphadenopathy, tenderness, thyromegaly Respiratory exam: PRESENT: clear to auscultation ayah, symmetrical, unlabored, other - Currently on 4Lpm via NC. Speaks full sentences.. ABSENT: crackles, rales, rhonchi, wheezes Cardiovascular exam: PRESENT: RRR, +S1, +S2. ABSENT: clicks, gallop, rubs, systolic murmur Pulses: PRESENT: normal radial pulses Vascular exam: PRESENT: normal capillary refill GI/Abdominal exam: PRESENT: normal bowel sounds, soft, tenderness - LLQ/Lt lateral pannus w/ tenderness and errythema; significantly improved from yesterday. Scant amount of purulent drainage noted.. ABSENT: guarding, mass, organolmegaly Rectal exam: PRESENT: deferred Extremities exam: PRESENT: full ROM, +1 edema. ABSENT: tenderness Musculoskeletal exam: PRESENT: ambulatory Neurological exam: PRESENT: alert, awake, oriented to person, oriented to place , oriented to time, oriented to situation, CN II-XII grossly intact. ABSENT: motor sensory deficit Psychiatric exam: PRESENT: appropriate affect, normal mood Skin exam: PRESENT: erythema - As above, normal color, warm, other - Numerous, discrete, open shallow lesions to the chest and abdomen. No drainage present other than as documented above w/ regard to abdominal cellulitis. ABSENT: intact Results Laboratory Results: 06/30/17 13:10 06/30/17 13:10 06/26/17 01:09 Blood Blood Culture - Final NO GROWTH IN 5 DAYS 06/26/17 01:04 Blood Blood Culture - Final NO GROWTH IN 5 DAYS 06/26/17 06/26/17 06/26/17 01:04 01:04 08:30 Creatine Kinase 31 70 CK-MB (CK-2) 0.82 Troponin I < 0.012 06/26/17 06/26/17 06/26/17 08:30 14:25 14:25 Creatine Kinase 58 CK-MB (CK-2) 3.32 2.78 Troponin I < 0.012 < 0.012 06/27/17 06/27/17 06/28/17 21:35 21:35 06:55 Creatine Kinase 69 41 CK-MB (CK-2) 1.37 Troponin I < 0.012 06/28/17 06/28/17 06/28/17 07:39 15:50 15:50 Creatine Kinase 36 CK-MB (CK-2) 0.95 0.85 Troponin I < 0.012 < 0.012 Impressions: Chest X-Ray 06/27/17 00:00 IMPRESSION: Moderate CHF pattern ; differential diagnosis includes pulmonary edema and pneumonia. Central line tip at level of right paracentral neck ; clinician aware as confirmed with technologist. Abdomen Ultrasound 06/28/17 13:40 IMPRESSION: Limited study due to the patient's body habitus. Diffuse edematous or inflammatory changes are identified most consistent with a cellulitis. There is possible fluid collection in the left lower quadrant as noted above which I cannot exclude is an abscess collection. Other findings as noted above Assessment & Plan - Diagnosis (1) Acute and chronic respiratory failure with hypercapnia Is this a current diagnosis for this admission?: Yes Plan: Improving 1- Supplemental oxygen to keep O2 sat greater than 88%; discussed w/ nursing - to trial weaning O2 2- BiPAP as needed 3- Encouraged mobility/ambulation 4- Appreciate palliative care consultation (2) Cellulitis Qualifiers: Site of cellulitis: trunk Site of cellulitis of trunk: abdominal wall Qualified Code(s): L03.311 - Cellulitis of abdominal wall Is this a current diagnosis for this admission?: Yes Plan: Improving 1- Appreciate surgical consultation; no plan for surgical intervention at this time 2 - D/C pip-tazo 3- Will start on PO Augmentin in anticipation of d/c home tomorrow 4- Meticulous skin care w/ nystatin powder (3) Diabetes Qualifiers: Diabetes mellitus type: type 2 Diabetes mellitus complication status: with unspecified complications Diabetes mellitus city attorney insulin use: with city attorney use Qualified Code(s): E11.8 - Type 2 diabetes mellitus with unspecified complications; 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 Is this a current diagnosis for this admission?: Yes Plan: 1- Lantus and sliding scale insulin 2- continue Amaryl 3- monitor BGL before meals at bedtime 4- Appreciate RD recommendations (4) Chronic pain Qualifiers: Chronic pain type: other chronic pain Qualified Code(s): G89.29 - Other chronic pain Is this a current diagnosis for this admission?: Yes Plan: 1- Methadone 5 mg every 18 h scheduled 2- Continue oxycodone 5 mg every 12 H as needed pain 3- Encouraged non-pharmacological interventions (5) Morbid obesity with BMI of 70 and over, adult Is this a current diagnosis for this admission?: Yes Plan: 1- Appreciate RD recommendations (6) COPD (chronic obstructive pulmonary disease) Qualifiers: COPD type: unspecified COPD Qualified Code(s): J44.9 - Chronic obstructive pulmonary disease, unspecified Is this a current diagnosis for this admission?: Yes Plan: Admittedly noncompliant with home medications 1- encourage smoking cessation 2- consider LABA/LAMA 3- Cont nebs (7) CARY (obstructive sleep apnea) Is this a current diagnosis for this admission?: Yes Plan: 1- Encouraged tobacco cessation 2- BiPAP as needed, CPAP as outpatient qHS and prn (8) Tobacco abuse Is this a current diagnosis for this admission?: Yes Plan: 1- encourage smoking cessation 2- nicotine replacement therapy (9) SIRS (systemic inflammatory response syndrome) Is this a current diagnosis for this admission?: Yes Plan: Resolved (10) Acute renal failure Is this a current diagnosis for this admission?: Yes Plan: Resolved; continue to monitor (11) Hyperkalemia Is this a current diagnosis for this admission?: Yes Plan: Resolved, continue to monitor - Time Time Spent with patient: 15-24 minutes Smoking Cessation Education: 3 to 10 minutes Medications reviewed and adjusted accordingly: Yes Anticipated discharge: Home Within: within 24 hours
[2017-07-01] MEDS ORDERED: FUROSEMIDE 20 MG TABLET PO ONE (15:52)
--- NOTE | 2017-07-01 20:25 | Progress Note ---
Provider Note Provider Note: Palliative care follow up visit 05/31/17 S: Patient in bed with Bipap on, stating that she has been up on side of bed and got dyspneic. She is smiling and happy. I asked her if she had talked with her and family abiout her choice for DNR and hospice. She laughed and said yes. She said thinking about being appropriate for hospice helped her to realize how sick she has allowed herself to get. She realizes that she is the only one who can reverse the damage she has done with God's help. She says she still wants to have DNR, but she is not interested in hospice at this time because she wants to fight having respiratory ditress and prevent it, not just be comfortable with it. Odalis is positive about her ability to change. We discussed her smoking which she s going to stop. She wants to lose weight and we discussed diet and her family making her feel better by giving her food and sweets. jHowever, she is not blaming them for her weight, just hoping that they will help her by avoiding temptation. I encouraged her to remeer that she didnt get to this weight in a short time and she cannot reverse it in a short time. We talked about the possibility of depression and frustration if she expects too much change too quickly, that a steady loss is going to last more than a rapid loss. I talked with her about smoking cessation and reduction of pain meds and anxiety meds being very important to reducing episodes of dyspnea and respiratory failure. Also talked about how these meds can slow her GI tract and metabolism to make her weight loss slower and reduce ehr ability to exercise. O: Patient is very happy with her decision and resolve to get better instead fo giving in to comfort care and . She has a deep evelyn and is depending on God's help with moving toward her goals. We talked about this at length. She was visably breathing easier with this conversation. She is having no acute dyspnea but kept her Bipap on during conversation. Face flushed from exertion, conversation and possibly dyspnea. A/P: Morbid Obesity; Patient resolved to improve diet. Slthough in talking about her resolve she was very upset that she did not get the croissant she had expected for breakfast. Opiod dependency: Patient talked about never wanting to have the withdrawl symptoms she had this admission again, but also wants hospitalist to increase her methadone dose some. She does want to continue DNR and wants DNI also. However, she hopes to improve her condition at home. She requests that I call her occasionally to talk with her. Appreciate opportunity to participate in care of this patient. total time with patient today: 25 minutes
[2017-07-01] MEDS: AMOXICILLIN TR/POT CLAVULANATE 500-125 MG TAB PO SCH (22:30)
[2017-07-02] MEDS: IPRATROPIUM/ALBUTEROL 0.5-2.5 MG/3 ML AMPUL NEB SCH ×3 (01:50→13:47)
[2017-07-02] MEDS ORDERED: NORMAL SALINE 1000 ML 1,000 ML IV ONE (02:45)
[2017-07-02] MEDS: METHADONE HCL 10 MG TABLET PO SCH (05:23)
[2017-07-02] MEDS: HEPARIN SOD (PORCINE) 5,000 UNIT/ML 1 ML SYRINGE SUBCUT SCH (05:23)
[2017-07-02] MEDS: AMOXICILLIN TR/POT CLAVULANATE 500-125 MG TAB PO SCH (05:23)
--- NOTE | 2017-07-02 07:18 | EKG REPORT ---
SEVERITY:- ABNORMAL ECG - SINUS RHYTHM LEFT POSTERIOR FASCICULAR BLOCK : Confirmed by: Jeffrey Patel MD 02-Jul-2017 07:17:45
[2017-07-02] MEDS: INSULIN LISPRO 100 UNIT/ML 3 ML VIAL SUBCUT PRN (08:37)
[2017-07-02] MEDS: INSULIN GLARGINE,HUM.REC.ANLOG 1,000 UNIT/10 ML UNIT SUBCUT SCH (08:38)
[2017-07-02] MEDS: NICOTINE 21 MG/24 HR PATCH.TD24 TD SCH (10:05)
[2017-07-02] MEDS: DOCUSATE SODIUM 100 MG CAPSULE PO SCH (10:06)
[2017-07-02] MEDS: GLIMEPIRIDE 4 MG TABLET PO SCH (10:06)
[2017-07-02] MEDS: METOPROLOL TARTRATE 25 MG TABLET PO SCH (10:07)
[2017-07-02] MEDS: MULTIVITAMIN TABLET PO SCH (10:07)
[2017-07-02] MEDS: GABAPENTIN 300 MG CAPSULE PO SCH (10:08)
[2017-07-02] MEDS: VENLAFAXINE HCL 75 MG CAP.SR.24H PO SCH (10:08)
[2017-07-02] MEDS: NYSTATIN TOPICAL POWDER 15 GM TP SCH (10:09)
[2017-07-02] MEDS: OXYCODONE HCL IR 5 MG TABLET PO PRN (12:15)
--- NOTE | 2017-07-02 12:32 | PDOC DISCHARGE SUMMARY ---
General - Admit/Disc Date/PCP Admission Date/Primary Care Provider: 06/26/17 00:31 Discharge Date: 07/02/17 - Discharge Diagnosis (1) Acute and chronic respiratory failure with hypercapnia Is this a current diagnosis for this admission?: Yes Summary: Patient initially presented to the emergency department with acute hypoxic and hypercapnic respiratory failure secondary to underlying CARY, morbid obesity hypoventilation syndrome and opiate abuse. She required BiPAP support and Narcan. Her opiates were weaned with improvement in respiratory function. At time of discharge she required supplemental oxygen at 4 L/min via nasal cannula with BiPAP nightly and as needed. Patient reports this is her baseline oxygen requirement and has CPAP at home. Over the course of her admission several conversations were had with the patient with regard to the need to decrease her opiates, stop smoking, and attempt to lose weight. She met with palliative care and has elected to be a DNR/DNI in the future. She has discussed this with her family, who are supportive of her decision. She will be discharged to home with home health follow-up in stable condition. (2) Cellulitis Is this a current diagnosis for this admission?: Yes Summary: Cellulitis of the left lower abdomen/pannus was treated with the Zosyn. Abdominal ultrasound did demonstrate a potential abscess that Surgery term and did not require surgical intervention. The cellulitis improved with antibiotics , topical nystatin, and meticulous skin care. She will be transitioned to p.o. Augmentin for discharge. (3) Diabetes Is this a current diagnosis for this admission?: Yes Summary: The patient's diabetes was managed with Lantus and sliding scale insulin. Her Amaryl was continued. She met with registered dietitian and had multiple conversations with nursing, palliative care, and myself with regard to dietary changes needed to manage her diabetes with the goal of gradual weight loss. Patient has asked to be discharged on her hospital regiment rather than resuming her home medication Toujeo. Patient confirms that she is committed to checking her blood sugar before meals and at bedtime and providing sliding scale Humalog accordingly. (4) Chronic pain Is this a current diagnosis for this admission?: Yes Summary: Her home medications were initially discontinued secondary to respiratory failure. She met with psychiatry services, palliative care services and spoke with nursing staff and myself with regard to the risk of continued high-dose opiate medications. Nursing services assisted patient in developing nonpharmacological techniques for management of her pain to include meditation, prayer, position change, distraction, heat. She will be discharged on reduced dosing of her methadone and oxycodone with recommendations for close follow-up with primary care, pain management, and psychiatry. (5) Morbid obesity with BMI of 70 and over, adult Is this a current diagnosis for this admission?: Yes Summary: Patient was admittedly noncompliant with home medications prior to admission. Her respiratory failure was addressed with BiPAP, neb treatments, adjustments of her opiate medications. She does continue to smoke 1 pack per day and she was encouraged to decrease tobacco with goal of complete cessation. (6) COPD (chronic obstructive pulmonary disease) Is this a current diagnosis for this admission?: Yes (7) CARY (obstructive sleep apnea) Is this a current diagnosis for this admission?: Yes Summary: As above (8) Tobacco abuse Is this a current diagnosis for this admission?: Yes Summary: As above (9) SIRS (systemic inflammatory response syndrome) Is this a current diagnosis for this admission?: Yes Summary: Patient was transferred to the ICU briefly for SIRS 2/2 tachycardia, hypotension , respiratory distress. She was treated with IV Zosyn for cellulitis of the left lower abdomen. She improved overnight and was transferred back to [facility]. (10) Acute renal failure Is this a current diagnosis for this admission?: Yes Summary: Patient was admitted with acute renal failure secondary to opiate misuse resulting in hypotension. Her kidney function improved with IV fluid resuscitation. (11) Hyperkalemia Is this a current diagnosis for this admission?: Yes Summary: Replete - Additional Information Resuscitation Status: Full Code Discharge Diet: Cardiac, Diabetic Discharge Activity: Activity As Tolerated, Balance Activity w/Rest, Slowly Increase Activity Home Medications: Gabapentin [Neurontin 300 mg Capsule] 300 mg PO Q8 06/26/17 Glimepiride [Amaryl 4 mg Tablet] 4 mg PO BID 06/26/17 Lisinopril [Prinivil 2.5 mg Tablet] 2.5 mg PO DAILY 06/26/17 Amox Tr/Potassium Clavulanate [Augmentin "500" Tablet] 1 tab PO Q8 #42 tablet 07/02/17 Insulin Glargine,Hum.rec.anlog [Lantus Solostar] 32 unit SQ QAM #4 insuln.pen Insulin Lispro [Humalog Kwikpen] See Protocol SQ ACHS #3 07/02/17 Ipratropium/Albuterol Sulfate [Duoneb 3 ml Ampul] 3 ml NEB RTQ6 vial.neb Methadone HCl [Dolophine 10 mg Tablet] 5 mg PO Q8 #21 tablet 07/02/17 Metoprolol Tartrate [Lopressor 25 mg Tablet] 25 mg PO Q12 #60 tablet 07/02/17 Multivitamin [Tab-A-Charlee (Multiple Vitamin) Tablet] 1 tab PO DAILY tablet 07/02 Nicotine [Nicoderm 21 mg/24 Hr Transderm Patch] 1 each TD DAILY #14 patch.td24 07/02/17 Nystatin [Mycostatin Topical Powder 15 gm] 1 applic TP BID #1 bottle 07/02/17 Oxycodone HCl [Oxy-Ir 5 mg Tablet] 5 mg PO Q12HP PRN #14 tablet 07/02/17 Venlafaxine HCl ER [Effexor Xr 75 mg Cap.sr] 75 mg PO DAILY cap.sr.24h History of Present Illness Patient complains of: Patient states that she is ready to go home. She continues to have dyspnea on exertion which improves quickly with rest and BiPAP use. History of Present Illness: Per H&P by Dr. Carr: RADHA CARDENAS is a 47 year old female with a past medical history of chronic pain, depression, anxiety, obstructive sleep apnea, COPD, and some dependent diabetes, diabetic neuropathy, restless leg syndrome, chronic constipation, tobacco dependence and super morbid obesity with a BMI of 84. Patient has been in her usual state of health until approximately 48 hours ago her noted exceptional lethargy and shortness of breath consistent with previous episodes of hypercapnic respiratory failure. Patient's is at bedside and states the patient had refilled her methadone earlier in the week resulting in patient abrupt angry denial. In the emergency room she was found to be lethargic, hypoxemic and hypotensive, her labs reveal acute renal failure, hyperkalemia, hypoxia and hypercapnia. She is started on BiPAP and referred to the hospitalist for admission. Physical Exam Vital Signs: Temp Pulse Resp BP Pulse Ox 98.1 F 87 18 104/61 90 L 07/02/17 05:31 07/02/17 08:40 07/02/17 08:40 07/02/17 05:31 07/02/17 08:40 Intake & Output 07/01/17 07/02/17 07/03/17 06:59 06:59 06:59 Intake Total 2453 1441 Output Total 3200 5100 Balance -659 -5280 Weight 256 kg 218 kg General appearance: PRESENT: no acute distress, cooperative, morbidly obese Head exam: PRESENT: atraumatic, normocephalic Eye exam: PRESENT: conjunctiva pink, EOMI, PERRLA. ABSENT: scleral icterus Mouth exam: PRESENT: moist, tongue midline Neck exam: PRESENT: full ROM. ABSENT: carotid bruit, JVD, lymphadenopathy, tenderness, thyromegaly Respiratory exam: PRESENT: clear to auscultation ayah, decreased breath sounds - Throughout secondary to body habitus and poor respiratory effort., symmetrical, unlabored, other - Remains on 4 L/min via nasal cannula. Speaks full sentences.. ABSENT: crackles, rales, rhonchi, tachypnea, wheezes Cardiovascular exam: PRESENT: RRR, +S1, +S2. ABSENT: clicks, gallop, rubs, systolic murmur Pulses: PRESENT: normal radial pulses Vascular exam: PRESENT: normal capillary refill GI/Abdominal exam: PRESENT: normal bowel sounds, soft, tenderness - Left lower quadrant/left lateral pannus with tenderness and erythema; continues to improve. Scant amount of purulent drainage noted., other - Difficult exam secondary to body habitus. ABSENT: distended, guarding, mass, organolmegaly Rectal exam: PRESENT: deferred Extremities exam: PRESENT: full ROM, +1 edema. ABSENT: calf tenderness, tenderness Musculoskeletal exam: PRESENT: ambulatory Neurological exam: PRESENT: alert, awake, oriented to person, oriented to place , oriented to time, oriented to situation, CN II-XII grossly intact. ABSENT: motor sensory deficit Psychiatric exam: PRESENT: appropriate affect, normal mood Skin exam: PRESENT: dry, erythema - As above, normal color, warm, other - Numerous, discrete, open shallow lesions to the chest and abdomen. No drainage present other than as documented above with regard to the abdominal cellulitis. Results Laboratory Results: 06/30/17 13:10 06/30/17 13:10 06/26/17 06/26/17 06/26/17 01:04 01:04 08:30 Creatine Kinase 31 70 CK-MB (CK-2) 0.82 Troponin I < 0.012 06/26/17 06/26/17 06/26/17 08:30 14:25 14:25 Creatine Kinase 58 CK-MB (CK-2) 3.32 2.78 Troponin I < 0.012 < 0.012 06/27/17 06/27/17 06/28/17 21:35 21:35 06:55 Creatine Kinase 69 41 CK-MB (CK-2) 1.37 Troponin I < 0.012 06/28/17 06/28/17 06/28/17 07:39 15:50 15:50 Creatine Kinase 36 CK-MB (CK-2) 0.95 0.85 Troponin I < 0.012 < 0.012 Impressions: Chest X-Ray 06/27/17 00:00 IMPRESSION: Moderate CHF pattern ; differential diagnosis includes pulmonary edema and pneumonia. Central line tip at level of right paracentral neck ; clinician aware as confirmed with technologist. Abdomen Ultrasound 06/28/17 13:40 IMPRESSION: Limited study due to the patient's body habitus. Diffuse edematous or inflammatory changes are identified most consistent with a cellulitis. There is possible fluid collection in the left lower quadrant as noted above which I cannot exclude is an abscess collection. Other findings as noted above Qualifiers PATEINT BEING DISCHARGED WITH ANY OF THE FOLLOWING DIAGNOSIS?: No Plan Discharge Plan: Discharge to home with home health. Items for follow-up: 1-may benefit from psychiatric follow-up for depression and anxiety related to morbid obesity, chronic respiratory failure, opiate dependence, chronic pain 2-continue opiate weaning, patient did not require antianxiolytic medications recommend BZD avoidance Time Spent: Greater than 30 Minutes
[2017-07-02 12:53] VITALS: BP 120/66
--- NOTE | 2017-07-06 15:47 | Progress Note ---
Provider Note Provider Note: CAPACITY EVALUATION Please see the Capacity Evaluation documentation under the Notes section. It is titled "Clinician to Provider. Thank you for this referral
== END 2017-07-02 14:21 | disposition home health service (06) | DRG 189 ==
LOC: ER 20:54 → EH 06-26 00:31 → UNDOADMIN 06-26 00:36 → 3N 06-26 03:06 → EH 06-26 03:06 → ICU 06-27 21:50 → 3N 06-27 21:50 → 3S 06-28 14:06
PROVIDERS: ADMIT Internal Medicine; ATTEND Internal Medicine
PROC: 5A09457 Assistance with Respiratory Ventilation, 24-96 Consecutive Hours, Continuous Positive Airway Pressure (ICD-10-PCS; 2017-06-26)
PROC: 02HV33Z Insertion of Infusion Device into Superior Vena Cava, Percutaneous Approach (ICD-10-PCS; principal; 2017-06-27)
PROC: B548ZZA Ultrasonography of Superior Vena Cava, Guidance (ICD-10-PCS; 2017-06-27)
DX: J96.22 Acute and chronic respiratory failure with hypercapnia (principal); L03.311 Cellulitis of abdominal wall; Z68.45 Body mass index [BMI] 70 or greater, adult; N17.9 Acute kidney failure, unspecified; J44.9 Chronic obstructive pulmonary disease, unspecified; G47.33 Obstructive sleep apnea (adult) (pediatric); E66.01 Morbid (severe) obesity due to excess calories; E87.5 Hyperkalemia; K59.00 Constipation, unspecified; E11.40 Type 2 diabetes mellitus with diabetic neuropathy, unspecified; E78.5 Hyperlipidemia, unspecified; G25.81 Restless legs syndrome; F32.9 Major depressive disorder, single episode, unspecified; F41.9 Anxiety disorder, unspecified; G89.29 Other chronic pain; Z79.899 Other long term (current) drug therapy; Z79.4 Long term (current) use of insulin; F17.210 Nicotine dependence, cigarettes, uncomplicated; Z88.1 Allergy status to other antibiotic agents; Z91.040 Latex allergy status; Z88.8 Allergy status to other drugs, medicaments and biological substances; Z91.14 Patient's other noncompliance with medication regimen; Z99.81 Dependence on supplemental oxygen
CPT/HCPCS: 36415; 36600; 51702; 71010; 76705; 80048; 80053; 80307; 81001; 82180; 82550; 82553; 82803; 82962; 83605; 83735; 83880; 84484; 84703; 85025; 87040; 87086; 93005; 93010; 94660; 99285; C1751; J1644; J1815; J2310; J2543; J3490; J7030; J7620

== ENCOUNTER 2017-07-28 14:38 | Emergency (ER) | payer MEDICAID ==
--- NOTE | 2017-07-28 15:19 | ER Document Report ---
ED Respiratory Problem - General Mode of Arrival: Ambulatory Information source: Patient TRAVEL OUTSIDE OF THE [place] IN LAST 30 DAYS: No - HPI Patient complains to provider of: Other <CRISTIAN FU - Last Filed: 07/28/17 17:54> <SEFERINO GLEASON - Last Filed: 07/28/17 23:00> - General Chief Complaint: Shortness Of Breath Stated Complaint: SHORTNESS OF BREATH Time Seen by Provider: 07/28/17 15:12 Notes: Patient is a 47 year old female that presents to the emergency department today with complaints of low back pain after a fall off of her bed according to the hospice nurse who was with the patient when she arrived. Patient is a DNR and on hospice. Patient is very non-compliant with her medications according to the hospice nurse. Hospice nurse states that the patient "does not need to be here" . Patient is hypoxic in the mid 80s despite being on bi-pap. (CRISTIAN FU) - Related Data Allergies/Adverse Reactions: ceftriaxone sodium [From Rocephin] Allergy (Unknown, Verified 06/26/17 02:16) Generalized Itching levofloxacin [From Levaquin] Allergy (Unknown, Verified 06/26/17 02:16) Generalized Itching adhesive tape [Adhesive Tape] Allergy (Verified 06/26/17 02:16) latex [Latex] Allergy (Verified 06/26/17 02:16) morphine [Morphine] Allergy (Verified 06/26/17 02:16) Eczematous dermatitis vancomycin [Vancomycin] Adverse Reaction (Severe, Verified 06/26/17 02:16) Renal failure bacitracin [From Neosporin] Adverse Reaction (Unknown, Verified 06/26/17 02:16) Generalized rash gramicidin D [From Neosporin] Adverse Reaction (Unknown, Verified 06/26/17 02:16 ) Generalized rash neomycin sulfate [From Neosporin] Adverse Reaction (Unknown, Verified 06/26/17 02:16) Generalized rash polymyxin B [From Neosporin] Adverse Reaction (Unknown, Verified 06/26/17 02:16) Generalized rash Past Medical History - General Information source: [facility] Records Cannot obtain history due to: Other - on bi-pap, hypoxic - Social History Smoking Status: Former Smoker Lives with: Family Family History: Reviewed & Not Pertinent - No one with DVT. No one with pulmonary emboli. 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 Suspected vancomycin allergy Skin Medical History: Reports Hx Cellulitis Psychiatric Medical History: Reports: Hx Anxiety, Hx Depression Past Surgical History: Reports: Hx Abdominal Surgery - Abdominal wall abscess, incision and drainage., Hx Orthopedic Surgery - right knee, right arm, Other - CVC I&D of abdominal wall abscess - Immunizations Immunizations up to date: Yes Hx Diphtheria, Pertussis, Tetanus Vaccination: Yes Hx Pneumococcal Vaccination: 10/11/13 <CRISTIAN FU - Last Filed: 07/28/17 17:54> Review of Systems - Review of Systems -: Yes ROS unobtainable due to patient's medical condition <CRISTIAN FU - Last Filed: 07/28/17 17:54> Physical Exam - Vital signs Interpretation: Hypoxic - General General appearance: Lethargic In distress: Mild - Respiratory Respiratory status: Respiratory distress Breath sounds: Decreased air movement - Cardiovascular Rhythm: Regular - Abdominal Inspection: Morbidly Obese Tenderness: Nontender - Back Back: Nontender - Extremities General upper extremity: Normal ROM General lower extremity: Normal ROM - Neurological Cognition: Confused Motor strength normal: LUE, RUE, LLE, RLE <SEFERINO GLEASON - Last Filed: 07/28/17 23:00> - Vital signs Vitals: Temp Pulse Ox 98.3 F 88 L 07/28/17 14:50 07/28/17 14:50 Course - Laboratory Result Diagrams: 07/28/17 15:03 07/28/17 15:03 <CRISTIAN FU - Last Filed: 07/28/17 17:54> - Laboratory Result Diagrams: 07/28/17 15:03 07/28/17 15:03 <SEFERINO GLEASON - Last Filed: 07/28/17 23:00> - Re-evaluation Re-evalutation: 07/28/17 Patient is a 47-year-old female who comes in with difficulty breathing. Patient is morbidly obese and is on hospice at home with DNR/DNI orders in place. Discussed with patient's hospice nurse who states that the patient is at her baseline and would be accepted back home under hospice care. Patient initially was having difficulty breathing and staying awake. Improved with BiPAP which she is supposed to be on all the time but is generally noncompliant with. Patient also had episode of SVT which resolved after Cardizem. Adenosine had no effect. Patient feels better and also would like to go home. Today, she is urinary tract infection. She has been given a dose of Zosyn and will be discharged home with doxycycline which has been effective before for her UTIs. Return if any worsening or concerning symptoms stable for discharge. (SEFERINO GLEASON) - Vital Signs Vital signs: Temp Pulse Resp BP Pulse Ox 98.3 F 16 126/85 H 94 07/28/17 14:50 07/28/17 18:16 07/28/17 18:16 07/28/17 18:16 - Laboratory Laboratory results interpreted by me: 07/28/17 07/28/17 07/28/17 15:03 15:03 15:03 RBC 5.62 H MCH 26.6 L MCHC 31.8 L RDW 21.3 H Seg Neutrophils % 81.6 H Lymphocytes % 9.8 L Absolute Neutrophils 8.6 H Sodium 145.2 H Potassium 5.2 H Carbon Dioxide 33 H Glucose 188 H Total Bilirubin 1.4 H Direct Bilirubin 0.9 H Creatine Kinase 21 L NT-Pro-B Natriuret Pep 3690 H Albumin 3.4 L Urine Protein Urine Blood Urine Nitrite Ur Leukocyte Esterase 07/28/17 15:40 RBC MCH MCHC RDW Seg Neutrophils % Lymphocytes % Absolute Neutrophils Sodium Potassium Carbon Dioxide Glucose Total Bilirubin Direct Bilirubin Creatine Kinase NT-Pro-B Natriuret Pep Albumin Urine Protein 100 H Urine Blood LARGE H Urine Nitrite POSITIVE H Ur Leukocyte Esterase SMALL H Discharge <CRISTIAN FU - Last Filed: 07/28/17 17:54> <SEFERINO GLEASON - Last Filed: 07/28/17 23:00> - Discharge Clinical Impression: CARY (obstructive sleep apnea), Morbid obesity with BMI of 70 and over, adult Acute and chronic respiratory failure ([id number]) Qualifiers: Respiratory failure complication: hypoxia and hypercapnia Qualified Code(s): J96.21 - Acute and chronic respiratory failure with hypoxia; J96.22 - Acute and chronic respiratory failure with hypercapnia; J96.22 - Acute and chronic respiratory failure with hypercapnia; J96.22 - Acute and chronic respiratory failure with hypercapnia UTI (urinary tract infection) Qualifiers: Urinary tract infection type: site unspecified Hematuria presence: with hematuria Qualified Code(s): N39.0 - Urinary tract infection, site not specified ; R31.9 - Hematuria, unspecified; R31.9 - Hematuria, unspecified Condition: Stable Disposition: HOME, SELF-CARE Instructions: Urinary Tract Infection ([facility]) Prescriptions: Doxycycline Hyclate 100 mg PO BID #20 capsule Scribe Attestation: 07/28/17 23:00 I personally performed the services described in the documentation, reviewed and edited the documentation which was dictated to the scribe in my presence, and it accurately records my words and actions. (SEFERINO GLEASON) Scribe Documentation - Scribe Written by Leilaniibe:: Cherry Dominguez, 07/28/2017 1537 acting as scribe for :: Robin <CRISTIAN FU - Last Filed: 07/28/17 17:54>
[2017-07-28 15:23] LABS: ABSOLUTE BASOPHILS # (AUTO) 0.1 10^3/uL (0.0-0.2); ABSOLUTE EOSINOPHILS # (AUTO) 0.2 10^3/uL (0.0-0.6); ABSOLUTE MONOCYTES (AUTO) 0.6 10^3/uL (0.1-1.4); ABSOLUTE NEUT (AUTO) 8.6 10^3/uL (1.7-8.2); BASOPHILS % (AUTO) 1.1 % (0-2); EOSINOPHILS % (AUTO) 1.5 % (0-6); LYMPHOCYTES % (AUTO) 9.8 % (13-45); MEAN CORPUSCULAR HEMOGLOBIN 26.6 pg (27.0-33.4); MEAN CORPUSCULAR HGB CONC 31.8 g/dL (32.0-36.0); MEAN CORPUSCULAR VOLUME 84 fl (80-97); RED BLOOD COUNT 5.62 10^6/uL (3.72-5.28); RED CELL DISTRIBUTION WIDTH 21.3 % (11.5-14.0); SEGMENTED NEUTROPHILS % (AUTO) 81.6 % (42-78); WHITE BLOOD COUNT 10.5 10^3/uL (4.0-10.5)
--- NOTE | 2017-07-28 15:33 | RADIOLOGY REPORT (SQ) ---
EXAM DESCRIPTION: CHEST SINGLE VIEW COMPLETED DATE/TIME: 07/28/2017 3:22 pm REASON FOR STUDY: SOB COMPARISON: 06/28/2017 EXAM PARAMETERS: NUMBER OF VIEWS: One view. TECHNIQUE: Single frontal radiographic view of the chest acquired. RADIATION DOSE: NA LIMITATIONS: None. FINDINGS: LUNGS AND PLEURA: There is significant opacification of both lung bases. Pulmonary vascul ar congestion is present. Pulmonary edema present. MEDIASTINUM AND HILAR STRUCTURES: No masses. Contour normal. HEART AND VASCULAR STRUCTURES: Cardiomegaly. BONES: No acute findings. HARDWARE: None in the chest. OTHER: No other significant finding. IMPRESSION: Cardiomegaly with pulmonary edema. Cannot exclude pneumonia in either or both lung base s. TECHNICAL DOCUMENTATION: JOB ID: [id number]
[2017-07-28 15:41] LABS: ALANINE AMINOTRANSFERASE 22 U/L (9-52); ALBUMIN 3.4 g/dL (3.5-5.0); ALKALINE PHOSPHATASE 117 U/L (38-126); ANION GAP 11 (5-19); ASPARTATE AMINO TRANSFERASE 15 U/L (14-36); BILIRUBIN,DIRECT 0.9 mg/dL (0.0-0.4); BILIRUBIN,TOTAL 1.4 mg/dL (0.2-1.3); BLOOD UREA NITROGEN 19 mg/dL (7-20); CALCIUM 9.2 mg/dL (8.4-10.2); CARBON DIOXIDE 33 mmol/L (22-30); CHLORIDE 101 mmol/L (98-107); CREATINE KINASE 21 U/L (30-135); CREATININE RESULT 0.93 mg/dL (0.52-1.25); GLUCOSE 188 mg/dL (75-110); POTASSIUM 5.2 mmol/L (3.6-5.0); SODIUM 145.2 mmol/L (137-145)
[2017-07-28 15:52] LABS: CREATINE KINASE MB 1.34 ng/mL (<4.55)
[2017-07-28 15:53] LABS: TROPONIN I < 0.012 ng/mL
[2017-07-28 16:02] LABS: APPEARANCE,URINE CLOUDY; BILIRUBIN,URINE NEGATIVE (NEGATIVE); GLUCOSE, URINE NEGATIVE (NEGATIVE); KETONES,URINE NEGATIVE (NEGATIVE); LEUKOCYTE ESTERASE,URINE SMALL (NEGATIVE); NITRITE,URINE POSITIVE (NEGATIVE); PROTEIN,URINE 100 mg/dL (NEGATIVE); URINE SPECIFIC GRAVITY 1.018; UROBILINOGEN,URINE NEGATIVE mg/dL (<2.0)
[2017-07-28] MEDS ORDERED: PIPERACILLIN/TAZOBACTAM 3.375 GM VIAL IV ONE (16:08)
[2017-07-28] MEDS ORDERED: ADENOSINE INJ/PF 6 MG/2 ML SDV IV ONE (16:17)
[2017-07-28] MEDS ORDERED: LORAZEPAM INJ 2 MG/1 ML VIAL IV ONE (16:37)
[2017-07-28] MEDS ORDERED: DILTIAZEM HCL INJ 25 MG/5 ML VIAL IV ONE (16:38)
[2017-07-28] MEDS ORDERED: NORMAL SALINE 500 ML IV ONE (16:38)
--- NOTE | 2017-07-28 17:36 | EKG REPORT ---
SEVERITY:- ABNORMAL ECG - PACEMAKER SPIKES OR ARTIFACTS SINUS TACHYCARDIA PROBABLE RIGHT VENTRICULAR HYPERTROPHY BORDERLINE T ABNORMALITIES, INFERIOR LEADS : Confirmed by: Calli Jimenes MD 28-Jul-2017 17:34:09
--- NOTE | 2017-07-28 17:36 | EKG REPORT ---
SEVERITY:- ABNORMAL ECG - SINUS RHYTHM LEFT ANTERIOR FASCICULAR BLOCK CONSIDER RIGHT VENTRICULAR HYPERTROPHY BORDERLINE R WAVE PROGRESSION, ANTERIOR LEADS : Confirmed by: Calli Jimenes MD 28-Jul-2017 17:34:14
[2017-07-28 18:55] VITALS: BP 126/85
== END 2017-07-28 18:55 | disposition home or self-care (01) ==
LOC: ER 14:38
DX: J96.21 Acute and chronic respiratory failure with hypoxia (principal); J96.22 Acute and chronic respiratory failure with hypercapnia; N39.0 Urinary tract infection, site not specified; R31.9 Hematuria, unspecified; R06.02 Shortness of breath; M54.5 Low back pain; Z87.891 Personal history of nicotine dependence; G47.33 Obstructive sleep apnea (adult) (pediatric); E66.01 Morbid (severe) obesity due to excess calories; Z68.45 Body mass index [BMI] 70 or greater, adult
CPT/HCPCS: 93005; 99285; 96375; 96365; 36415; 87040; 82553; 82550; 85025; 87077; 80053; 81001; 84484; 87186; 83880; 71010; 93010; 94660; J3490; J2060; J7040; J0153; J2543